=== PATIENT | female | born 1955 | race Caucasian/White ===

== ENCOUNTER 2017-02-26 08:46 | Day surgery (SDC) | payer BC ==
[~2017-02-26] VITALS: Ht 149.9 cm; Wt 70.0 kg
[2017-02-26] VITALS (18 sets, daily range): BP systolic 93–140; BP diastolic 52–81; PULSE 60–70; TEMP 36.4–37; O2SAT 92–100; Ht 149.9 cm; Wt 70.0 kg
--- NOTE | 2017-02-26 09:22 | History and Physical ---
History & Physical Date Feb 26, 2017. Chief Complaint Increasing shortness of breath with activity History of Present Illness The patient is a 61 year old female with complaints of Increasing shortness of breath with activity Past Medical/Surgical History 61-year-old female seen by Dr. Anand and Joe Murray the history of asthma and multiple exacerbations. 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 She has been noticing increasing shortness of breath with activity especially climbing stairs and other episodes of significant exertion. She quit smoking 10 years ago after 3/4 packs per day for 25 years. She has had a 5-6 pound weight loss as also noted pulse oximetry dipping down to 80 % with activity. She sees Dr. Clakr/Cardiology for paroxysmal atrial fibrillation and hypertension. She underwent myocardial perfusion scan on 02/17 with medium size/mild anterior wall a reversibility defects suggestive breast attenuation no evidence for ischemia. She also had normal left ventricular function and EKG was negative for myocardial ischemia. She did have wheezing and shortness of Breath during her exercise portion of the studies. Overnight oximetry study was essentially within normal limits with only 5.2 % of the time desaturations noted. CT scan of the chest 02/10/2017 showed Active Problems 1. Asthma 2. Bronchitis 3. Chronic obstructive pulmonary disease 4. Fibromyalgia 5. Shortness of breath Surgical History 1. History of Appendectomy 2. History of Hysterectomy Family History 1. Family history of cardiac disorder 2. Family history of Alzheimer's disease Social History Former smoker Marital History - Currently Occupation: Current Meds 1. Albuterol Sulfate (2.5 MG/3ML) 0.083% Inhalation Nebulization DOSE IN NEBULIZER EVERY 4 PRN 2. Budesonide 0.25 MG/2ML Inhalation Suspension; USE 1 UNIT DOSE VIA NEBULIZER TWO TIMES A DAY 3. Montelukast Sodium 10 MG Oral Tablet; TAKE 1 TABLET IN THE EVENING; 4. Ventolin HFA 108 (90 Base) MCG/ACT Inhalation EVERY 4 HOURS NEEDED 5. Advair Diskus 500-50 MCG/DOSE Inhalation Aerosol Powder Breath Activated; INHALE 1 PUFF TWICE DAILY 6. Spiriva HandiHaler 18 MCG Inhalation Capsule; INHALE THE CONTENTS OF 1 CAPSULE DAILY 7. Cozaar 50 MG Oral Tablet; TAKE 1 TABLET DAILY DIRECTED; 8. Metoprolol Tartrate 25 MG Oral Tablet; TAKE 1 TABLET TWICE DAILY; 9. Motrin IB 200 MG Oral Tablet; TAKE 1 TABLET EVERY 12HOURS DAILY; 10. Wellbutrin SR 150 MG Oral Tablet Extended Release 12 Hour; TAKE 1 TABLET DAILY Allergies 1. Fosamax TABS Additional History Hepatic Disease: No Endocrine Disorder: No Kidney Disease: No Hypertension: No Heart Disease: No Bleeding Tendencies: No Infectious Diseases: No Physical Examination Skin: warm/dry, no rash Eyes: normal inspection, EOMI, sclerae normal ENT: normal ENT inspection, pharynx normal Head: normocephalic, atraumatic Neck: supple, no adenopathy, trachea midline Respiratory/Chest: lungs clear, normal breath sounds, no respiratory distress Cardiovascular: regular rate, rhythm, no edema, no murmur Abdomen / GI: normal bowel sounds, non tender Back: normal inspection Extremities: normal inspection, normal range of motion Neurologic/Psych: no motor/sensory deficits, alert, normal reflexes, oriented x 3 Diagnosis Increasing shortness of breath with activity ASA Classification: ASA Class III Plan of Treatment Bronchoscopy with BAL and conscious sedation
--- NOTE | 2017-02-26 10:31 | History & Physical Bridge Note ---
H&P Re-Evaluation Bridge Note: I have examined the patient, reviewed the History & Physical and in the interval since the performance of the History & Physical I have noted the following changes of clinical significance: No changes noted
--- NOTE | 2017-02-26 10:32 | Procedure Note ---
Pre-Mod Sedation Assessment General Date of Moderate Sedation: Feb 26, 2017. Vital Signs: Vital Signs Past 12 Hours Date Time Temp Pulse Resp B/P (MAP) Pulse Ox O2 Delivery O2 Flow Rate FiO2 02/26/17 09:36 36.5 67 20 140/67 (91) 100 Room Air Review Cardiovascular: regular rate, rhythm, no edema, no gallop, no JVD, no murmur Abdomen: normal bowel sounds, non tender, soft, no organomegaly, no pulsatile mass Lungs: chest non-tender, lungs clear, normal breath sounds Airway Class: III Pre-Sedation Airway Assessment Oral Cavity: WNL Short Thick Neck: No Hx of Sleep Apnea: No Smoking Status: Former Smoker Mallampati Classification: Class III Procedure Planning Contraindications-for Mod Sed: None Yes Notes The planned sedation has been discussed with the patient and consent obtained. I have identified the patient, determined the appropriateness of sedation and have assessed the patient immediately prior to the procedure. All medicine(s) and interventions are by my order.
[2017-02-26] MEDS ORDERED: NURSING VERBAL MED ORDER ONE ×2 (10:45→12:00)
[2017-02-26] MEDS ORDERED: PRVHFAIN INH (10:47)
[2017-02-26] MEDS ORDERED: LOSA50TA6 PO (10:47)
[2017-02-26] MEDS ORDERED: BUPR-79 PO (10:47)
[2017-02-26] MEDS ORDERED: BUDE0.253 NEB (10:47)
[2017-02-26] MEDS ORDERED: IBUP-1050 PO (10:47)
[2017-02-26] MEDS ORDERED: MONT1TAB3 PO (10:47)
[2017-02-26] MEDS ORDERED: ASPI81TA28 PO (10:47)
[2017-02-26] MEDS ORDERED: ALBU2SYP9 INH (10:47)
[2017-02-26] MEDS ORDERED: METO25TA56 PO (10:47)
[2017-02-26] MEDS ORDERED: ADVIN50/60 INH (10:47)
[2017-02-26] MEDS ORDERED: PANT40TA PO (10:47)
[2017-02-26] MEDS ORDERED: SPRIN/30 INH (10:47)
[2017-02-26] MEDS ORDERED: DEXTROSE 5% 500ML 500 ML IV SCH (11:00)
--- NOTE | 2017-02-26 11:23 | Procedure Note ---
Post-Moderate Sedation Plan General Date of Moderate Sedation Feb 26, 2017. Vital Signs: Vital Signs Past 12 Hours Date Time Temp Pulse Resp B/P (MAP) Pulse Ox O2 Delivery O2 Flow Rate FiO2 02/26/17 11:10 60 16 112/69 97 Mask 4.0 02/26/17 11:05 61 16 108/62 100 Mask 4.0 02/26/17 11:00 68 20 116/78 100 Mask 4.0 02/26/17 10:55 62 20 108/73 100 Mask 4.0 02/26/17 10:50 66 20 121/73 100 Mask 8.0 02/26/17 10:47 65 20 133/81 98 Mask 8.0 02/26/17 10:43 64 20 93/69 99 Mask 8.0 02/26/17 10:34 36.5 67 20 140/67 100 Room Air 02/26/17 09:36 36.5 67 20 140/67 (91) 100 Room Air Review - Discharge Plan Post Moderate Sedation Plan: On clinical assessment, the patient appears to have tolerated the conscious sedation without complications. Patient is recovering as anticipated. Patient will continue to be monitored by nursing and may be discharged when conscious sedation discharge criteria are met.
--- NOTE | 2017-02-26 11:25 | Bronchoscopy Procedure Note ---
Bronchoscopy Procedure Note Procedure: Bronchoscopy, conscious sedation, BAL right middle lobe Consent: Obtained through the patient placed into the chart Pre-procedural diagnosis: Chronic cough with progressive dyspnea on exertion Post-procedural diagnosis: Chronic cough with progressive dyspnea on exertion and atypical right middle lobe/external compression Start time: 1100 End time: 1119 Total time: minutes Analgesia: 2% liquid lidocaine: Via nebulizer 4% gel lidocaine: Via right naris 2% liquid lidocaine: Via bronchoscopy Sedation: Versed IV: 4mg Fentanyl IV: 75 g Procedure: The [employer] [place] [employer] video bronchoscope was used for this procedure and passed down through the right naris Right naris/posterior naris/posterior oropharynx: Anatomically within normal limits Glottis: Anatomically within normal limits Vocal cords: Proper abduction and abduction, anatomically within normal limits Subglottis/trachea/Carly: Anatomically within normal limits Right bronchial tree: Right mainstem bronchus: Anatomically within normal limits Right upper lobe: Anatomically within normal limits Bronchus intermedius: Anatomically within normal limits Right middle lobe: Notably erythematous with circumferential external compression Right lower lobe: Anatomically within normal limits Findings: No significant findings noted Left bronchial tree: Left mainstem bronchus: Anatomically within normal limits Left upper lobe: Anatomically within normal limits Lingula: Anatomically within normal limits Left lower lobe: Anatomically within normal limits Findings: No significant findings noted Bronchial alveolar lavage: Right middle lobe with minimal return EBL: Complications: None Follow-up: In the [facility]
--- NOTE | 2017-02-26 11:26 | Discharge Instructions ---
Discharge Instructions Date of Service Feb 26, 2017. Admission Reason for Admission: Asthma,Copd,Sob *Dr Smith To Do* Discharge Discharge Diagnosis / Problem: progressive dyspnea on exertion, chronic cough with external compression of Discharge Goals Goal(s): Diagnostic testing Activity Recommendations Activity Limitations: resume your previous activity . Instructions / Follow-Up Instructions / Follow-Up Follow-up with Dr. Anand in the [facility]/pulmonary division Current Hospital Diet Patient's current hospital diet: Discharge Diet Recommended Diet: Regular Diet Procedures Procedures Performed: Bronchoscopy, conscious sedation, bronchial lavage of the right middle lobe Pending Studies Studies pending at discharge: no Medical Emergencies . Who to Call and When: Medical Emergencies: If at any time you feel your situation is an emergency, please call 911 immediately. . Non-Emergent Contact Non-Emergency issues call your: Vessel Slagman . . "Provider Documentation" section prepared by Demond Smith. . VTE Core Measure Inpt VTE Proph given/why not?: Treatment not indicated
[2017-02-26] MEDS ORDERED: FENTANYL CITRATE INJ 50 MCG/1 ML 2 ML VIAL IV ONE (12:00)
[2017-02-26] MEDS ORDERED: MIDAZOLAM HCL 5 MG/ML 1 ML VIAL IV ONE (12:00)
== END 2017-02-26 13:35 | disposition home or self-care (01) ==
LOC: C.ACU 08:46
PROVIDERS: ATTEND Internal Medicine Critical Care Medicine
DX: R05 Cough (principal); R06.00 Dyspnea, unspecified; J45.909 Unspecified asthma, uncomplicated; J44.9 Chronic obstructive pulmonary disease, unspecified; R06.02 Shortness of breath; Z87.891 Personal history of nicotine dependence; I48.0 Paroxysmal atrial fibrillation; I10 Essential (primary) hypertension; M79.7 Fibromyalgia; Z90.89 Acquired absence of other organs; Z90.710 Acquired absence of both cervix and uterus; Z82.49 Family history of ischemic heart disease and other diseases of the circulatory system; Z81.8 Family history of other mental and behavioral disorders

== ENCOUNTER 2017-08-25 09:09 | Inpatient (IN) | payer BC ==
[2017-07-30 10:52] VITALS: BMI 32.0
--- NOTE | 2017-07-30 11:43 | PAT Medication Instructions ---
Service Date Jul 30, 2017. Current Home Medication List Albuterol (Ventolin Hfa), 2 PUFFS INH Q4 PRN for SOB/Wheezing Albuterol Sulf (Ventolin), Unknown Dose INH QAM PRN for COPD Aspirin (Aspirin Ec), 81 MG PO QAM Budesonide (Inhalation) (Pulmicort Respules 0.25MG/2ML), Unknown Dose NEB QAM PRN for COPD Budesonide/Formoterol Fumarate (Symbicort 160/4.5 Inhaler), 1 PUFFS INH BID Bupropion (Wellbutrin Sr), 150 MG PO QAM Calcium/Vitamin D (Os-Allan 500 Plus D), 1 TAB PO QAM Ibuprofen (Advil), 600 MG PO TID PRN for Pain Losartan Potassium (Cozaar), 1 TAB PO QAM Metoprolol Tartrate (Lopressor) (Lopressor), 1 TAB PO BID Montelukast Sodium (Singulair), 1 TAB PO QAM Naproxen (Aleve), 220 MG PO UD Pantoprazole (Protonix), 40 MG PO QAM Risedronate Sod (Actonel), 35 MG PO WK Tiotropium [place] (Spiriva Handihaler), Unknown Dose INH QAM Medication Instructions For Your Scheduled Surgery -Continue as directed: Risedronate Sod (Actonel), 35 MG PO WK - Hold the following medications 7 days prior to surgery: Ibuprofen (Advil), 600 MG PO TID PRN for Pain Naproxen (Aleve), 220 MG PO UD - Hold the following medications the morning of surgery: Calcium/Vitamin D (Os-Allan 500 Plus D), 1 TAB PO QAM Losartan Potassium (Cozaar), 1 TAB PO QAM - Take the following medications the morning of surgery with a sip of water: Albuterol (Ventolin Hfa), 2 PUFFS INH Q4 PRN for SOB/Wheezing (if needed, and bring it with you ti the hospital) Albuterol Sulf (Ventolin), Unknown Dose INH QAM for COPD Aspirin (Aspirin Ec), 81 MG PO QAM Budesonide (Inhalation) (Pulmicort Respules 0.25MG/2ML), Unknown Dose NEB QAM for COPD Budesonide/Formoterol Fumarate (Symbicort 160/4.5 Inhaler), 1 PUFFS INH BID Bupropion (Wellbutrin Sr), 150 MG PO QAM Metoprolol Tartrate (Lopressor) (Lopressor), 1 TAB PO BID Montelukast Sodium (Singulair), 1 TAB PO QAM Pantoprazole (Protonix), 40 MG PO QAM Tiotropium [place] (Spiriva Handihaler), Unknown Dose INH QAM - Take the following medications as scheduled the night before surgery: Albuterol (Ventolin Hfa), 2 PUFFS INH Q4 PRN for SOB/Wheezing (if needed) Albuterol Sulf (Ventolin), Unknown Dose INH QAM PRN for COPD Budesonide (Inhalation) (Pulmicort Respules 0.25MG/2ML), Unknown Dose NEB QAM PRN for COPD Budesonide/Formoterol Fumarate (Symbicort 160/4.5 Inhaler), 1 PUFFS INH BID Metoprolol Tartrate (Lopressor) (Lopressor), 1 TAB PO BID If you have any questions please call us at [phone] or [phone] or [phone]
[2017-07-30 12:26] LABS: BASO % 0.8 %; BASO ABS # 0.07 K/uL (0-0.2); EOS % 7.4 %; EOS ABS # 0.64 K/uL (0-0.5); HEMATOCRIT 33.7 % (37-47); HEMOGLOBIN 11.2 g/dL (12.0-16.0); IG# 0.01 K/uL (0.00-0.02); LYMPH % 17.7 %; LYMPH ABS # 1.52 K/uL (1.2-3.4); MEAN CELL VOLUME 90.8 fL (80-100); MEAN CORPUSCULAR HEMOGLOBIN 30.2 pg (25-34); MEAN CORPUSCULAR HGB CONC 33.2 g/dl (32-36); MEAN PLATELET VOLUME 10.9 fL (7.4-10.4); MONO % 7.9 %; MONO ABS # 0.68 K/uL (0.11-0.59); NEUT % 66.1 %; NEUT ABS # 5.68 K/uL (1.4-6.5); PLATELET COUNT 290 K/uL (130-400); RED CELL DISTRIBUTION WIDTH CV 14.9 % (11.5-14.5)
[2017-07-30 12:36] LABS: PTT PATIENT 25.3 SECONDS (21.0-31.0)
[2017-07-30 13:26] LABS: CALCIUM 8.9 mg/dl (8.5-10.1); CREATININE 0.88 mg/dl (0.60-1.20); POTASSIUM 3.9 mmol/L (3.5-5.1)
[2017-08-25] VITALS (9 sets, daily range): BP systolic 106–159; BP diastolic 71–90; PULSE 58–96; TEMP 36.6–37; O2SAT 94–100; Ht 149.9 cm; Wt 70.0 kg
[~2017-08-25] VITALS: Ht 149.9 cm; Wt 70.0 kg
[~2017-08-25 09:09] MED LIST: ACT/35 PO; ALBU2SYP9 INH; ASPI81TA28 PO; ATROPINE SULFATE 0.1 MG/ML 5ML SYR IV PRN; BUDE0.253 NEB; BUPR-79 PO; CALC500C70 PO; CEFAZOLIN 1000MG IV PUSH 7.5 ML IV SCH; EpHEDrine SULFATE INJ 50 MG/ML AMP IV PRN; FENTANYL CITRATE INJ 50 MCG/1 ML 2 ML VIAL IV PRN; HYDROmorphone INJ 1 MG/ML SYR IV PRN; IBUP-1050 PO; LABETALOL HCL IV 5 MG/ML 20ML IV PRN; LACTATED RINGER'S 1000ML 1,000 ML IV SCH; LOSA50TA6 PO; METO25TA56 PO; MONT1TAB3 PO; NAPR1TAB9 PO; ONDANSETRON INJ 2 MG/ML 2 ML VIAL IV PRN; PANT40TA PO; PHENYLEPHRINE 100MCG/ML 5ML SYR IV PRN; PROMETHAZINE HCL INJ 12.5 MG in SODIUM CHLORIDE 0.9% 50ML 50 ML IV PRN; PRVHFAIN INH; SPRIN/30 INH; SYMIN160 INH
[2017-08-25] MEDS ORDERED: MIDAZOLAM HCL 1 MG/ML 2ML VIAL ONE (11:22)
[2017-08-25] MEDS ORDERED: FENTANYL CITRATE INJ 50 MCG/1 ML 2 ML VIAL ONE ×3 (11:23→14:14)
--- NOTE | 2017-08-25 11:30 | History and Physical ---
History & Physical Date Aug 25, 2017. Chief Complaint Back and leg pain History of Present Illness The patient is a 61 year old female with complaints of back and leg pain Additional History Hepatic Disease: No Endocrine Disorder: No Kidney Disease: No Hypertension: Yes Heart Disease: No Bleeding Tendencies: No Infectious Diseases: No Allergies Coded Allergies: Alendronate (Verified Allergy, Severe, "SEVERE BONE PAIN", 07/30/17) Home Medications Scheduled Aspirin (Aspirin Ec), 81 MG PO QAM Budesonide/Formoterol Fumarate (Symbicort 160/4.5 Inhaler), 1 PUFFS INH BID Bupropion (Wellbutrin Sr), 150 MG PO QAM Calcium/Vitamin D (Os-Allan 500 Plus D), 1 TAB PO QAM Losartan Potassium (Cozaar), 1 TAB PO QAM Metoprolol Tartrate (Lopressor) (Lopressor), 1 TAB PO BID Montelukast Sodium (Singulair), 1 TAB PO QAM Naproxen (Aleve), 220 MG PO UD Pantoprazole (Protonix), 40 MG PO QAM Risedronate Sod (Actonel), 35 MG PO WK Tiotropium [place] (Spiriva Handihaler), Unknown Dose INH QAM Scheduled PRN Albuterol (Ventolin Hfa), 2 PUFFS INH Q4 PRN for SOB/Wheezing Albuterol Sulf (Ventolin), Unknown Dose INH QAM PRN for COPD Budesonide (Inhalation) (Pulmicort Respules 0.25MG/2ML), Unknown Dose NEB QAM PRN for COPD Ibuprofen (Advil), 600 MG PO TID PRN for Pain Physical Examination Skin: warm/dry, no rash Eyes: normal inspection, EOMI, sclerae normal ENT: normal ENT inspection, pharynx normal Head: normocephalic, atraumatic Neck: supple, no adenopathy, trachea midline Respiratory/Chest: lungs clear, normal breath sounds, no respiratory distress Cardiovascular: regular rate, rhythm, no edema, no murmur Abdomen / GI: normal bowel sounds, non tender Back: normal inspection Extremities: normal inspection, normal range of motion Neurologic/Psych: no motor/sensory deficits, alert, normal reflexes, oriented x 3 Diagnosis Lumbar spinal stenosis with spondylolisthesis Plan of Treatment L3-S1 decompression and fusion
[2017-08-25] MEDS ORDERED: BACITRACIN 50000 UNIT VIAL ONE (11:56)
[2017-08-25] MEDS ORDERED: BUPIVACAINE/EPINEPHRINE 0.5% MPF 1:200,000 30 ML VIAL ONE (11:56)
[2017-08-25] MEDS ORDERED: HYDROmorphone INJ 2 MG/ML SYR/VIAL ONE ×2 (12:28→13:41)
[2017-08-25] MEDS ORDERED: ONDANSETRON INJ 2 MG/ML 2 ML VIAL ONE ×2 (13:42→14:08)
[2017-08-25] MEDS ORDERED: ROCURONIUM BROMIDE 10 MG/ML 5 ML VIAL IV ONE (13:42)
[2017-08-25] MEDS ORDERED: DEXAMETHASONE SOD INJ 4 MG/ML VIAL ONE (13:42)
[2017-08-25] MEDS ORDERED: PROPOFOL IV EMULSION 10 MG/ML 20 ML VIAL IV ONE (13:42)
[2017-08-25] MEDS ORDERED: EpHEDrine SULFATE 50MG/5ML SYR ONE ×2 (13:42→14:07)
[2017-08-25] MEDS ORDERED: LIDOCAINE HCL 2% 2 ML VIAL (20MG/ML) ONE (13:42)
[2017-08-25] MEDS ORDERED: KETOROLAC TROMETHAMINE 30 MG/ML VIAL ONE (13:43)
[2017-08-25] MEDS ORDERED: NEOSTIGMINE METHYLSULFATE 1 MG/ML 10ML VIAL ONE (14:07)
[2017-08-25] MEDS ORDERED: GLYCOPYRROLATE INJ 0.2 MG/ML VIAL ONE (14:07)
[2017-08-25] MEDS ORDERED: FLOSEAL HEMOSTATIC MATRIX 10ML TOP ONE (14:08)
[2017-08-25] MEDS ORDERED: hydrOXYzine HCL 25 MG TAB PO PRN (14:15)
[2017-08-25] MEDS ORDERED: LORAZEPAM INJ 0.5 MG in SYRINGE 0 ML IV PRN (14:15)
[2017-08-25] MEDS ORDERED: MAGNESIUM HYDROXIDE SUSP 30 ML UDC PO PRN (14:15)
[2017-08-25] MEDS ORDERED: ACETAMINOPHEN 500 MG TAB PO PRN (14:15)
[2017-08-25] MEDS ORDERED: BISACODYL 10 MG SUPP PR PRN (14:15)
[2017-08-25] MEDS ORDERED: ALUMINUM/MAGNESIUM SUSP 30 ML UDC PO PRN (14:15)
[2017-08-25] MEDS ORDERED: DO NOT ADMINISTER FLU VACCINE PRN (14:15)
[2017-08-25] MEDS ORDERED: ALBUTEROL HFA 8 GM INHALER INH PRN (14:15)
[2017-08-25] MEDS ORDERED: SOD PHOSPHATE/SOD BIPHOSPHATE ENEMA 132 ML BTL PR PRN (14:15)
[2017-08-25] MEDS ORDERED: CEFAZOLIN IV 1,000 MG in DEXTROSE 5% 50ML 50 ML IV SCH (14:15)
[2017-08-25] MEDS ORDERED: LORAZEPAM 0.5 MG TAB PO PRN (14:15)
[2017-08-25] MEDS ORDERED: METOCLOPRAMIDE HCL INJ 5 MG/ML 2 ML VIAL IV PRN (14:15)
[2017-08-25] MEDS ORDERED: PROMETHAZINE HCL INJ 12.5 MG in SODIUM CHLORIDE 0.9% 50ML 50 ML IV PRN (14:15)
[2017-08-25] MEDS ORDERED: NALOXONE HCL 0.4 MG/1 ML VIAL/CARP IV PRN ×2 (14:15)
[2017-08-25] MEDS ORDERED: FAMOTIDINE 20 MG TAB PO PRN (14:15)
[2017-08-25] MEDS ORDERED: DO NOT ADMINISTER PNEUMOCOCCAL VACCINE PRN (14:15)
[2017-08-25] MEDS ORDERED: HYDROmorphone HCL 0.5MG/ML 50 ML CASSETTE IV PRN (14:15)
[2017-08-25] MEDS ORDERED: SODIUM CHLORIDE 0.9% 1000ML 1,000 ML IV SCH (14:15)
[2017-08-25] MEDS ORDERED: ACETAMINOPHEN IV 100 ML IV PRN (14:15)
--- NOTE | 2017-08-25 14:15 | [facility] Operative Report ---
Operative Report Operative Date Aug 25, 2017. Pre-Operative Diagnosis Lumbar Spinal Stenosis and Spondylolisthesis Post-Operative Diagnosis Same Procedure(s) Performed 1. Lumbar decompression medial facetectomy foraminotomy L3-4 L4-5 L5-S1. #2 posterior spinal fusion L3-4 L4-5 L5-S1. #3 placement posterior segmental instrumentation L3-S1. #4 placement of locally harvested Fernandez's allograft in the posterior lateral gutters. #5 placement InFUSE collagen sponge, with master graft in the posterior lateral gutters. Surgeon Dr. Galen Luo Grill Prep Cook Surgeon(s) Maria Teresa Cardenas PA-C Estimated Blood Loss 275mL Findings Severe spinal stenosis Specimens None, Per Surgeon Anesthesia Type General Description of Procedure Patient was met with preoperatively case discussed all questions addressed. After informed consent obtained patient was taken to the operative suite underwent intubation and placed in the prone position on the Aiden table on top of the Padilla frame. All bony prominences were well-padded eyes inspected to ensure no external pressure placed upon them. This point the lumbar spine was prepped and draped in the normal sterile fashion. Sharp dissection with the assistance of Bovie cautery was performed down to and exposing the lamina and transverse processes of L3-L4-L5 and the sacral ala bilaterally. From a caudocephalad fashion complete laminectomy of L5 L4 and L3 is performed addressing severe lateral recess and foraminal stenosis. Pedicle screws were then placed in L3-L4-L5 S1 levels bilaterally with the assistance of fluoroscopy and the appropriate size de placed. Transverse processes of L3-L4- L5 and the sacral sacral ala were then burred to subcortical bleeding bone. Infuse collagen sponge master graft and locally harvested morselized autograft were placed in the posterior gutters. A 15 round ALTON drains was inserted in the incision was closed with 1 Vicryl fascia 2-0 Vicryl subcutaneously and 4-0 Monocryl for fashion closure Steri-Strips sterile dressings placed. Patient weakened taken PACU stable condition. Please note Maria Teresa Redd was present throughout the entire procedure involved in patient positioning complex portions of the surgery and final skin closure. I attest to the content of the Intraoperative Record and any orders documented therein. Any exceptions are noted below.
--- NOTE | 2017-08-25 14:21 | DIAGNOSTIC IMAGING REPORT ---
LUMBAR SPINE 2 OR 3 VIEW CLINICAL HISTORY: 61 years-old Female presenting with L3-S1 DECOMPRESSION AND FUSION. TECHNIQUE: 2 fluoroscopic spot image(s) obtained as part of an intraoperative procedure. COMPARISON: None. FINDINGS/IMPRESSION: Bilateral transpedicular screw not fixation of L3-S1. Laminectomy defects also noted. Grossly normal anatomic alignment. Please see surgical report for further details. Fluoroscopy dosage (mGy): 19.24. Fluoroscopy time: 22.9 seconds. Number of fluoroscopic spot images: 2. Electronically signed by: Pravin Adams M.D. 08/25/2017 2:19 PM Dictated Date/Time: 08/25/2017 2:19 PM
[2017-08-25] MEDS ORDERED: HYDROmorphone HCL 0.5MG/ML 50 ML CASSETTE ONE (14:34)
--- NOTE | 2017-08-25 15:22 | Anesthesiology Progress Note ---
Anesthesia Post Op Note Date & Time Aug 25, 2017 at 15:22 Vital Signs Pain Intensity: 0 Vital Signs Past 12 Hours Date Time Temp Pulse Resp B/P (MAP) Pulse Ox O2 Delivery O2 Flow Rate FiO2 08/25/17 15:05 87 14 121/70 100 Nasal Cannula 3 08/25/17 14:55 91 14 131/66 100 Nasal Cannula 3 08/25/17 14:45 99 16 132/71 100 Oxymask 3 08/25/17 14:35 104 16 136/75 100 Oxymask 5 08/25/17 14:29 36.1 107 16 111/66 100 Oxymask 5 08/25/17 09:41 100 Room Air 08/25/17 09:38 36.8 58 18 159/90 Notes Mental Status: alert / awake / arousable, participated in evaluation Pt Amnestic to Procedure: Yes Nausea / Vomiting: adequately controlled Pain: adequately controlled Airway Patency, RR, SpO2: stable & adequate BP & HR: stable & adequate Hydration State: stable & adequate Anesthetic Complications: no major complications apparent
[2017-08-25] MEDS: SODIUM CHLORIDE 0.9% 1000ML 1,000 ML IV SCH ×2 (17:32→23:20)
[2017-08-25] MEDS: CEFAZOLIN IV 1,000 MG in SYRINGE 0 ML IV SCH (17:33)
[2017-08-25] MEDS ORDERED: CALC-342 PO (18:40)
[2017-08-25] MEDS ORDERED: SPRIN/30 INH (18:40)
[2017-08-25] MEDS ORDERED: BUDE0.253 NEB (18:45)
[2017-08-25] MEDS ORDERED: ALBINS/ INH (18:45)
--- NOTE | 2017-08-25 19:43 | Medical Consult ---
Consultation Date of Consultation: Aug 25, 2017. Attending Physician: Galen Luo D.O. Reason for Consultation: Postop medical management History of Present Illness 61-year-old female who is a/P L3-S1 decompression and fusion today by Dr. Luo. Patient reports increasing back pain with radiation into the right hip and left leg for the past several years. Patient failed outpatient conservative measures and therefore presented for the planned procedure today. Postoperatively patient is doing well. She reports her pain is well controlled. She denies any weakness, numbness, or tingling to the bilateral lower extremities. She had some mild nausea that has since resolved. She denies abdominal pain or vomiting. No chest pain, shortness of breath, or palpitations. She denies lightheadedness, dizziness, or syncopal events. She has a catheter in place that is draining clear yellow urine Past Medical/Surgical History Medical Problems: (1) COPD (chronic obstructive pulmonary disease) Status: Chronic (2) Depression with anxiety Status: Chronic (3) Dyslipidemia Status: Chronic (4) Fibromyalgia Status: Chronic (5) GERD (gastroesophageal reflux disease) Status: Chronic (6) Hypertension Status: Chronic Surgical Problems: (1) History of appendectomy Status: Chronic (2) History of hysterectomy Status: Chronic Family History FH: arthritis FATHER Social History Smoking Status: Former Smoker Alcohol Use: none Allergies Coded Allergies: Alendronate (Verified Allergy, Severe, "SEVERE BONE PAIN", 07/30/17) Home Medications Pulmicort Respules 0.25MG/2ML (Budesonide (Inhalation)) 0.25 Mg/2 Ml Radha 1 Vial NEB DAILY 15 Days and TID PRN Proventil 0.083% 2.5MG/3ML (Albuterol Sulf) 2.5 Mg/3 Ml Nebu 2.5 Mg INH DAILY and TID PRN Spiriva Handihaler (Tiotropium Russell) 30 Puff/540 Mcg Aerp 1 Cap INH DAILY 30 Days Calcium 600+D (Calcium Carbonate-Vitamin D) 1 Tab Tab 1 Tab PO BID Symbicort 160/4.5 Inhaler (Budesonide/Formoterol Fumarate) 120 Puffs/ Aero 1 Puffs INH BID Actonel (Risedronate Sod) 35 Mg Tab 35 Mg PO WK TAKES ON SUNDAYS IN AM Aleve (Naproxen) 220 Mg Tab 220 Mg PO UD USES IBUPROFEN OR ALEVE PRN Aspirin Ec (Aspirin) 81 Mg Tab 81 Mg PO QAM Protonix (Pantoprazole Sodium) 40 Mg Tab 40 Mg PO QAM Wellbutrin Sr (Bupropion HCl) 150 Mg Ertab 150 Mg PO QAM Advil (Ibuprofen) 200 Mg Tab 600 Mg PO TID PRN Lopressor (Metoprolol Tartrate) 25 Mg Tab 1 Tab PO BID 90 Days Cozaar (Losartan Potassium) 50 Mg Tab 1 Tab PO QAM 30 Days Ventolin Hfa (Albuterol) 60 Puffs/5400 Mcg Aers 2 Puffs INH Q4 PRN Singulair (Montelukast Sodium) 10 Mg Tab 1 Tab PO QAM 90 Days Current Inpatient Medications Current Inpatient Medications Medications (Trade) Dose Ordered Sig/Richard Route Start Time Stop Time Status Last Admin Dose Admin Cefazolin Sodium 7.5 ml @ 2.5 mls/min PREOP IV 08/25/17 06:00 08/26/17 05:59 Lactated Ringer's 1,000 ml @ 15 mls/hr Q24H IV 08/25/17 06:00 08/26/17 05:59 08/25/17 11:42 15 MLS/HR Promethazine HCl 12.5 mg/Sodium Chloride 50.5 ml @ 202 mls/hr Q6H PRN IV 08/25/17 14:15 09/24/17 14:14 Ondansetron HCl (Zofran Inj) 4 mg Q6H PRN IV 08/25/17 14:15 09/24/17 14:14 Metoclopramide HCl (Reglan Inj) 10 mg Q6H PRN IV 08/25/17 14:15 09/24/17 14:14 Lorazepam (Ativan Tab) 0.5 mg Q8H PRN PO 08/25/17 14:15 09/24/17 14:14 Lorazepam 0.5 mg/ Syringe 0.25 ml @ 1 mls/min Q8H PRN IV 08/25/17 14:15 09/24/17 14:14 Pneumococcal Polysaccharide Vaccine 1 ea PRN PRN N/A 08/25/17 14:15 09/24/17 14:14 Influenza Virus Vacc Triv Types A&B 1 ea PRN PRN N/A 08/25/17 14:15 09/24/17 14:14 Polyethylene (Miralax Powder Packet) 17 gm Q6 PO 08/27/17 06:00 09/26/17 05:59 Bisacodyl (Dulcolax Supp) 10 mg DAILY PRN AL 08/25/17 14:15 09/24/17 14:14 Magnesium Hydroxide (Milk Of Magnesia Susp) 30 ml DAILY PRN PO 08/25/17 14:15 09/24/17 14:14 Hydromorphone HCl (Dilaudid Inj) 0.5-1mg prn moder... Q3H PRN IV 08/26/17 06:00 09/09/17 05:59 Oxycodone HCl (Roxicodone Immediate Rel Tab) 5-10mg prn moderate to sev... Q4H PRN PO 08/26/17 06:00 09/09/17 05:59 Sodium Chloride 1,000 ml @ 150 mls/hr Q6H40M IV 08/25/17 17:00 09/24/17 16:59 08/25/17 17:32 150 MLS/HR Acetaminophen (Tylenol Tab) 1,000 mg Q8H PRN PO 08/25/17 14:15 09/24/17 14:14 Acetaminophen 100 ml @ 400 mls/hr Q8H PRN IV 08/25/17 14:15 09/24/17 14:14 Naloxone HCl (Narcan Inj) 0.1 mg Q5M PRN IV 08/25/17 14:15 09/24/17 14:14 Senna/Docusate Sodium (Senokot S Tab) 2 tab HS PO 08/25/17 21:00 09/24/17 20:59 Sodium Biphosphate/ Sodium Phosphate (Fleet Enema) 132 ml ONE PRN AL 08/25/17 14:15 09/24/17 14:14 Hydroxyzine HCl (Vistaril Tab) 25 mg Q8H PRN PO 08/25/17 14:15 09/24/17 14:14 Al Hydroxide/Mg Hydroxide (Maalox Susp) 30 ml Q6H PRN PO 08/25/17 14:15 09/24/17 14:14 Famotidine (Pepcid Tab) 20 mg Q12 PRN PO 08/25/17 14:15 09/24/17 14:14 Diphenhydramine HCl (Benadryl Cap) 25 mg Q6H PRN PO 08/25/17 14:15 09/24/17 14:14 Miscellaneous Information (Discontinue POPCORN VENDOR) 1 ea ONE ONCE N/A 08/26/17 06:00 08/26/17 06:01 Naloxone HCl (Narcan Inj) 0.1 mg Q5M PRN IV 08/25/17 14:15 08/26/17 06:00 Hydromorphone HCl (Dilaudid Bark Tanner) 25 mg PRN PRN IV 08/25/17 14:15 08/26/17 06:00 Sodium Chloride 1,000 ml @ 15 mls/hr Q24H IV 08/25/17 14:15 08/26/17 06:00 Albuterol (Ventolin Hfa Inhaler) 2 puffs Q4 PRN INH 08/25/17 14:15 09/24/17 14:14 Aspirin (Ecotrin Tab) 81 mg QAM PO 08/26/17 09:00 09/25/17 08:59 Budesonide/ Formoterol Fumarate (Symbicort 160/ 4.5 Inh) 1 puffs BID INH 08/25/17 21:00 09/24/17 20:59 Bupropion HCl (Wellbutrin-Sr Tab) 150 mg QAM PO 08/26/17 09:00 09/25/17 08:59 Losartan Potassium (coZAAR TAB) 50 mg QAM PO 08/26/17 09:00 09/25/17 08:59 Metoprolol Tartrate (Lopressor Tab) 25 mg BID PO 08/25/17 21:00 09/24/17 20:59 Montelukast Sodium (Singulair Tab) 10 mg QAM PO 08/26/17 09:00 09/25/17 08:59 Pantoprazole Sodium (Protonix Tab) 40 mg QAM PO 08/26/17 09:00 09/25/17 08:59 Cefazolin Sodium 1000 mg/Syringe 7.5 ml @ 2.5 mls/min Q8H IV 08/25/17 18:00 08/26/17 02:02 08/25/17 17:33 2.5 MLS/MIN Tiotropium Russell (Spiriva Handihaler Inhaler) 1 puff DAILY INH 08/26/17 09:00 09/25/17 08:59 Albuterol Sulfate (Ventolin 0.083% 2.5MG/3ML Neb) 2.5 mg DAILY INH 08/26/17 09:00 09/25/17 08:59 Budesonide (Pulmicort Respules 0.25MG/ 2ML Neb Soln) 0.25 mg DAILY INH 08/26/17 09:00 09/25/17 08:59 Review of Systems ROS per HPI, all other systems reviewed and negative Physical Exam Date Time Temp Pulse Resp B/P (MAP) Pulse Ox O2 Delivery O2 Flow Rate FiO2 08/25/17 18:47 36.7 86 17 106/72 (83) 96 Room Air 08/25/17 17:40 36.6 84 18 109/72 (84) 94 Room Air 08/25/17 16:40 36.7 96 18 118/77 (91) 97 Room Air 08/25/17 16:10 36.7 91 15 129/75 (93) 96 Room Air 08/25/17 15:40 36.6 86 16 134/77 (96) 96 Room Air 87 08/25/17 15:40 Room Air 08/25/17 15:40 100 Room Air 08/25/17 15:25 36.4 86 14 129/73 100 Nasal Cannula 3 08/25/17 15:15 85 14 130/71 100 Nasal Cannula 3 08/25/17 15:05 87 14 121/70 100 Nasal Cannula 3 08/25/17 14:55 91 14 131/66 100 Nasal Cannula 3 08/25/17 14:45 99 16 132/71 100 Oxymask 3 08/25/17 14:35 104 16 136/75 100 Oxymask 5 08/25/17 14:29 36.1 107 16 111/66 100 Oxymask 5 08/25/17 09:41 100 Room Air 08/25/17 09:38 36.8 58 18 159/90 General Appearance: WD/WN, no apparent distress Head: normocephalic, atraumatic Eyes: normal inspection, EOMI, sclerae normal ENT: hearing grossly normal, + pertinent finding (Mucous membranes moist) Neck: supple, no JVD, no carotid bruits Respiratory/Chest: lungs clear, normal breath sounds, no respiratory distress Cardiovascular: regular rate, rhythm, no edema, normal peripheral pulses Abdomen/GI: normal bowel sounds, non tender, soft, no organomegaly Genitourinary - Female: + pertinent finding (Ferrera in place draining clear yellow urine) Back: + pertinent finding (S/P back surgery, surgical dressing dry and intact, drain in place draining bloody drainage, pedal pushes and pulls strong bilaterally) Extremities/Musculoskelatal: normal inspection, no calf tenderness, normal capillary refill Neurologic/Psych: no motor/sensory deficits, alert, normal mood/affect, oriented x 3 Skin: normal color, warm/dry Assessment & Plan S/P L3-S1 decompression fusion - POD#0 - activity and wound care orders as per ortho - pain control with bowel regimen - PT/OT - monitor H/H for acute blood loss anemia and transfuse blood products PRN Hypertension -BP controlled, continue losartan and metoprolol COPD -No signs of acute exacerbation -Continue home inhalers GERD -Continue PPI Anxiety and depression -Continue bupropion DVT prophylaxis -SCDs as per ortho Thank you for this consultation. We will follow the patient with you during their hospital stay. You can reach a member of the [facility] 16/12 via pager @ [phone]. Attending Note: Patient is a 61 yr female who underwent Lumbosacral decompression and fusion was seen and examined post OP. Doing well post op, denies chest pain, SOB, dizziness. Back pain is well controlled. Physical Exam: Vitals signs as noted above General Appearance:Moderately built and nourished, no apparent distress Head: normocephalic, Atraumatic Eyes: normal inspection, EOMI, PERRL Neck: supple, Trachea midline Respiratory/Chest: Normal breath sounds, CTA Cardiovascular: S1, S2, No murmur Abdomen/GI:Soft, Non tender, Bowel sounds present Back: Surgical Site in bandage Extremities/Musculoskelatal:normal inspection, no edema Neurologic/Psych:AAOX3, grossly no focal neurological deficits Skin:normal color,warm Assessment and Plan: S/P Lumbosacral decompression and Fusion by POD #0 Pain control Monitor for post op anemia Bowel regimen to prevent constipation DVT Px per primary team PT/OT I personally reviewed the record. Patient is interviewed and examined at bedside. Patient's care is coordinated with Erin Love [employer]. Please refer to the documentation above for details of patient's presentation and for discussion of other issues.
[2017-08-25] MEDS: BUDESONIDE/FORMOTEROL FUMARATE 160/4.5 60 PUFFS/INHALER INH SCH (20:57)
[2017-08-25] MEDS: METOPROLOL TARTRATE 25 MG TAB PO SCH (21:00)
[2017-08-25] MEDS: DOCUSATE SODIUM/SENNA 50/8.6MG TAB PO SCH (21:00)
[2017-08-25] MEDS: ONDANSETRON INJ 2 MG/ML 2 ML VIAL IV PRN (21:13)
[2017-08-26] VITALS (8 sets, daily range): BP systolic 91–114; BP diastolic 55–76; PULSE 66–90; TEMP 36.7–37.7; O2SAT 94–100
[2017-08-26] MEDS: CEFAZOLIN IV 1,000 MG in SYRINGE 0 ML IV SCH (02:03)
[2017-08-26 05:55] LABS: BASO % 0.1 %; BASO ABS # 0.01 K/uL (0-0.2); EOS % 0.4 %; EOS ABS # 0.04 K/uL (0-0.5); HEMATOCRIT 23.9 % (37-47); HEMOGLOBIN 8.5 g/dL (12.0-16.0); IG# 0.03 K/uL (0.00-0.02); LYMPH % 9.5 %; LYMPH ABS # 1.06 K/uL (1.2-3.4); MEAN CELL VOLUME 91.2 fL (80-100); MEAN CORPUSCULAR HEMOGLOBIN 32.4 pg (25-34); MEAN CORPUSCULAR HGB CONC 35.6 g/dl (32-36); MEAN PLATELET VOLUME 10.3 fL (7.4-10.4); MONO % 9.7 %; MONO ABS # 1.08 K/uL (0.11-0.59); NEUT ABS # 8.95 K/uL (1.4-6.5); PLATELET COUNT 208 K/uL (130-400); RED CELL DISTRIBUTION WIDTH CV 14.8 % (11.5-14.5); RED CELL DISTRIBUTION WIDTH SD 49.4 fL (36.4-46.3); WHITE BLOOD COUNT 11.17 K/uL (4.8-10.8)
[2017-08-26] MEDS ORDERED: DC PCA ONE (06:00)
[2017-08-26] MEDS: SODIUM CHLORIDE 0.9% 1000ML 1,000 ML IV SCH (06:08)
[2017-08-26] MEDS ORDERED: NURSING VERBAL MED ORDER ONE (06:15)
[2017-08-26 06:36] LABS: CALCIUM 7.4 mg/dl (8.5-10.1); CREATININE 0.74 mg/dl (0.60-1.20); POTASSIUM 3.5 mmol/L (3.5-5.1)
[2017-08-26] MEDS: BUDESONIDE 0.25 MG/2 ML VIAL (PULMICORT) INH SCH (07:11)
[2017-08-26] MEDS: ALBUTEROL 0.083% NEBU SOLN 3 ML VIAL INH SCH (07:12)
[2017-08-26] MEDS: OXYCODONE HCL IR 5 MG TAB (IMMEDIATE RELEASE) PO PRN ×4 (07:28→21:45)
[2017-08-26] MEDS: TIOTROPIUM BROMIDE 5 PUFF/90 MCG INH INH SCH (08:59)
[2017-08-26] MEDS: BUDESONIDE/FORMOTEROL FUMARATE 160/4.5 60 PUFFS/INHALER INH SCH ×2 (09:00→20:28)
[2017-08-26] MEDS ORDERED: LOSARTAN POTASSIUM 50 MG TAB PO SCH (09:00)
[2017-08-26] MEDS: PANTOprazole SOD 40 MG TAB PO SCH (09:02)
[2017-08-26] MEDS: METOPROLOL TARTRATE 25 MG TAB PO SCH ×2 (09:02→20:27)
[2017-08-26] MEDS: ASPIRIN 81 MG ECTAB PO SCH (09:02)
[2017-08-26] MEDS: BuPROPion SR 150 MG TABCR PO SCH (09:03)
[2017-08-26] MEDS: MONTELUKAST SOD 10 MG TAB PO SCH (09:03)
--- NOTE | 2017-08-26 10:51 | Consultant Recommendations ---
Advertising Inserter Recommendations Date of Service Aug 26, 2017. Advertising Inserter Recommendations Hospitalist consultation follow up Subjective This is a 61 year old F patient of orthopedic service who is post op back surgery on 08/25/17. Patient reports she has been working well with physical therapy yesterday. Denies shortness of breath or chest pain. Back pain is controlled. Physical Exam General Appearance: no apparent distress, sitting in chair Head: normocephalic, atraumatic Eyes: normal inspection, EOMI, sclerae normal ENT: hearing grossly normal Neck: supple, no JVD Respiratory/Chest: lungs clear, normal breath sounds, no respiratory distress Cardiovascular: regular rate, rhythm, no edema Abdomen/GI: normal bowel sounds, non tender, soft, no organomegaly Genitourinary: Ferrera Back: surgical dressing dry and intact, drain in place draining bloody drainage Extremities/Musculoskelatal: normal inspection, no calf tenderness, normal capillary refill Neurologic/Psych: no motor/sensory deficits, alert, normal mood/affect, oriented x 3 Skin: normal color, warm/dry Consultation recommendations / assessment This is a 61 year old F patient of orthopedic service who is post op Lumbar decompression medial facetectomy foraminotomy L3-4 L4-5 L5-S1; posterior spinal fusion L3-4 L4-5 L5-S1; placement posterior segmental instrumentation L3-S1 decompression fusion on 08/25/17 for history of Lumbar Spinal Stenosis and Spondylolisthesis Post-Operative Diagnosis Same Procedure(s) Performed 1. . #4 placement of locally harvested Fernandez's allograft in the posterior lateral gutters. #5 placement InFUSE collagen sponge, with master graft in the posterior lateral gutters. On labs, patient has anemia. Pre-op hgb 11.2 and post op Hgb 8.5. Differences in Hgb may be due to post-op blood loss during surgical procedure and from ALTON drain. Patient denies history of blood transfusions. Denies seeing blood in urine or in stools. Patient denies GI bleed history or use of blood thinners at home. Patient denies cardiac history of ischemic heart disease besides frequent PVCs. At this point, would advise trending the CBC daily and to transfuse blood product is Hgb less than 7 or if having symptomatic anemia Given post op blood loss, review of blood pressure today also low normotensive ranges. Losartan already given. Would hold off further Losartan for now for home treatment of hypertension as patient is not hypertensive. Restart when systolic blood pressure consistently above systolic of 120 Continue metoprolol for heart rate control Ferrera management as per orthopedics Continue bowel regimen to prevent narcotic induced ileus COPD history, breathing on room air, no signs of acute exacerbation GERD history, continue PPI Anxiety and depression history, continue bupropion DVT prophylaxis, SCDs as per ortho, Continue physical therapy sessions as tolerated
--- NOTE | 2017-08-26 12:36 | Progress Note ---
Progress Note Date of Service Aug 26, 2017. Progress Note Patient's back pain is controlled. Her leg symptoms are markedly improved. Her vital signs are stable. On exam she is sitting in a chair is good strength testing is comfortable. Assessment status post lumbar decompression fusion per plan at this time will continue physical therapy advance her bowel regiment anticipate home latter half of this week.
[2017-08-26] MEDS ORDERED: RXC5 PO (12:39)
--- NOTE | 2017-08-26 12:39 | Discharge Instructions ---
Discharge Instructions Date of Service Aug 26, 2017. Admission Reason for Admission: Spinal Stenosis Discharge Discharge Diagnosis / Problem: lumbar stenosis Discharge Goals Goal(s): Improve function Activity Recommendations Activity Limitations: per Instructions/Follow-up section . Instructions / Follow-Up Instructions / Follow-Up ACTIVITY RECOMMENDATIONS: SELF CARE INSTRUCTIONS AFTER THORACIC/LUMBAR FUSIONS 1. You may walk to your tolerance. It is good exercise for your legs and back. Expect some back and intermittent leg aches and pains. 2. You may perform "counter-top" level activities (make a sandwich, renetta with a project, etc.). 3. No bending or lifting of more than 10 pounds or back twisting of any nature (roll like a log when turning in bed). 4. You may ride in a car for 20-30 minutes at a time. No driving until after your first visit with your doctor. 5. Frequent changes of position and restricting sitting to 30 minutes at a time will help limit the amount of back spasms and stiffness you may experience. 6. You may discontinue the use of ambulatory aids (cane, crutches, etc.) once your strength and confidence allow. 7. You may machine edge bander the shower and let water strike your incision when you arrive home at least once daily. Do not take a tub bath, sit in a hot tub or go into a swimming pool until after your first recheck in the office. SPECIAL CARE INSTRUCTIONS: VERY IMPORTANT TO READ AND REVIEW A. Your surgical incision has been closed with a cosmetic suture under the skin that will dissolve in about 6 weeks. In 14 days, you can use a pair of clean scissors and cut the suture that is left outside of the skin at the ends of your incision. 1. The small skin tapes can be removed 7 days after surgery if they have not fallen off by that point. 2. You may keep the wound open to air as much as possible to promote healing after post-op day number 5 unless told otherwise by your doctor. 3. If you think the wound looks like it is becoming infected (redness or worsening drainage) and/or you are experiencing fever, chill or worsening back pain and muscle spasms, contact the office so that we may evaluate you as soon as possible. B. Complications are uncommon, but please contact us if you have any signs or symptoms of: 1. wound infection (fever higher than 102.5 degrees F, redness, separation of wound, drainage, or increasing pain from the incision) 2. blood clots in legs (pain, swelling, redness and warmth in legs) 3. urinary tract infection (fever higher than 102.5 degrees F, burning upon urination or increased frequency of urination) 4. nerve problems (inability to walk on your toes or heels, numbness, loss of bowel or bladder control) 5. any other symptoms that concern you C. Please call the office at if you have any concerns or questions about your operation or recovery. D. No smoking! Smoking drastically decreases the chance of a solid fusion. E. Do not take any anti-inflammatory medications (Indocin, Advil, Motrin, Aspirin, Naprosyn, etc.) as these may inhibit the chance of a solid fusion. Tylenol is okay to take for pain. MANAGING PAIN AFTER SPINAL SURGERY 1. Narcotic medication is intended for short-term use and will be provided for surgical pain. Surgical pain usually lasts for a period of 4-6 weeks. Narcotic medication includes Percocet, Vicodin, Darvocet, Tylenol #3 or Lortab. 2. Longer-term pain is more appropriately treated with non-narcotic medication such as Tylenol ES. 3. Muscle spasm is not appropriately treated with narcotics. Muscle relaxers such as Soma, Flexeril or Skelaxin can be used along with Tylenol ES. 4. Remember that we all live with some "aches and pains". This is not unusual or uncommon after an injury or as we get older. a. Back pain is expected and may include muscle spasms for 4 to 6 weeks after surgery. The pain should gradually improve. If the pain worsens for no apparent reason, please contact the office. b. Intermittent leg pain may also be experienced and should not be concerned about unless it worsens for no apparent reason. If so, please contact the office. 5. We will provide appropriate medication within the normal guidelines of their prescribed use. We will also be very cautious and aware of potential abuse and extended duration of patients' medication needs. a. Pain medications are for your comfort and to assist with sleep and rest so that the tissue can heal. They are not provided in order to return to normal activity and should not be used through the day. To do so or worsening pain at night can result from ongoing tissue damage and development of tolerance to the prescribed medicine. 6. Please allow 2-3 days to process refills. Prescriptions will not be mailed but must be picked up at the office. FOLLOW UP VISIT: Keep your scheduled follow-up appointment. Any questions, please call the office at . Current Hospital Diet Patient's current hospital diet: Regular Diet Discharge Diet Recommended Diet: Regular Diet Procedures Procedures Performed: 1. Lumbar decompression medial facetectomy foraminotomy L3-4 L4-5 L5-S1. #2 posterior spinal fusion L3-4 L4-5 L5-S1. #3 placement posterior segmental instrumentation L3-S1. #4 placement of locally harvested Fernandez's allograft in the posterior lateral gutters. #5 placement InFUSE collagen sponge, with master graft in the posterior lateral gutters. Pending Studies Studies pending at discharge: no Medical Emergencies . Who to Call and When: Medical Emergencies: If at any time you feel your situation is an emergency, please call 911 immediately. . Non-Emergent Contact Non-Emergency issues call your: Primary Care Provider . "Provider Documentation" section prepared by Galen Luo. . Interdisciplinary Professor Recommendations Interdisciplinary Professor Recommendations: Hospitalist consultation follow up Subjective This is a 61 year old F patient of orthopedic service who is post op back surgery on 08/25/17. Patient reports she has been working well with physical therapy yesterday. Denies shortness of breath or chest pain. Back pain is controlled. Physical Exam General Appearance: no apparent distress, sitting in chair Head: normocephalic, atraumatic Eyes: normal inspection, EOMI, sclerae normal ENT: hearing grossly normal Neck: supple, no JVD Respiratory/Chest: lungs clear, normal breath sounds, no respiratory distress Cardiovascular: regular rate, rhythm, no edema Abdomen/GI: normal bowel sounds, non tender, soft, no organomegaly Genitourinary: Ferrera Back: surgical dressing dry and intact, drain in place draining bloody drainage Extremities/Musculoskelatal: normal inspection, no calf tenderness, normal capillary refill Neurologic/Psych: no motor/sensory deficits, alert, normal mood/affect, oriented x 3 Skin: normal color, warm/dry Consultation recommendations / assessment This is a 61 year old F patient of orthopedic service who is post op Lumbar decompression medial facetectomy foraminotomy L3-4 L4-5 L5-S1; posterior spinal fusion L3-4 L4-5 L5-S1; placement posterior segmental instrumentation L3-S1 decompression fusion on 08/25/17 for history of Lumbar Spinal Stenosis and Spondylolisthesis Post-Operative Diagnosis Same Procedure(s) Performed 1. . #4 placement of locally harvested Fernandez's allograft in the posterior lateral gutters. #5 placement InFUSE collagen sponge, with master graft in the posterior lateral gutters. On labs, patient has anemia. Pre-op hgb 11.2 and post op Hgb 8.5. Differences in Hgb may be due to post-op blood loss during surgical procedure and from ALTON drain. Patient denies history of blood transfusions. Denies seeing blood in urine or in stools. Patient denies GI bleed history or use of blood thinners at home. Patient denies cardiac history of ischemic heart disease besides frequent PVCs. At this point, would advise trending the CBC daily and to transfuse blood product is Hgb less than 7 or if having symptomatic anemia Given post op blood loss, review of blood pressure today also low normotensive ranges. Losartan already given. Would hold off further Losartan for now for home treatment of hypertension as patient is not hypertensive. Restart when systolic blood pressure consistently above systolic of 120 Continue metoprolol for heart rate control Ferrera management as per orthopedics Continue bowel regimen to prevent narcotic induced ileus COPD history, breathing on room air, no signs of acute exacerbation GERD history, continue PPI Anxiety and depression history, continue bupropion DVT prophylaxis, SCDs as per ortho, Continue physical therapy sessions as tolerated
[2017-08-26] MEDS: HYDROmorphone INJ 0.5 MG/0.5 ML SYR IV PRN ×3 (14:37→22:26)
[2017-08-26] MEDS: ONDANSETRON INJ 2 MG/ML 2 ML VIAL IV PRN (18:50)
[2017-08-26] MEDS: DOCUSATE SODIUM/SENNA 50/8.6MG TAB PO SCH (21:45)
[2017-08-27] VITALS (11 sets, daily range): BP systolic 81–102; BP diastolic 47–65; PULSE 81–92; TEMP 37.3–37.7; O2SAT 81–94
[2017-08-27] MEDS: HYDROmorphone INJ 0.5 MG/0.5 ML SYR IV PRN (02:24)
[2017-08-27] MEDS: POLYETHYLENE (MIRALAX) 17 GM PACK PO SCH ×4 (05:38→23:18)
[2017-08-27] MEDS: OXYCODONE HCL IR 5 MG TAB (IMMEDIATE RELEASE) PO PRN ×4 (06:09→23:20)
[2017-08-27] MEDS: BUDESONIDE 0.25 MG/2 ML VIAL (PULMICORT) INH SCH (07:18)
[2017-08-27] MEDS: ALBUTEROL 0.083% NEBU SOLN 3 ML VIAL INH SCH (07:18)
[2017-08-27] MEDS: TIOTROPIUM BROMIDE 5 PUFF/90 MCG INH INH SCH (08:52)
[2017-08-27] MEDS: BuPROPion SR 150 MG TABCR PO SCH (08:53)
[2017-08-27] MEDS: BUDESONIDE/FORMOTEROL FUMARATE 160/4.5 60 PUFFS/INHALER INH SCH ×2 (08:53→20:47)
[2017-08-27] MEDS: ASPIRIN 81 MG ECTAB PO SCH (08:53)
[2017-08-27] MEDS: PANTOprazole SOD 40 MG TAB PO SCH (08:54)
[2017-08-27] MEDS: MONTELUKAST SOD 10 MG TAB PO SCH (08:54)
[2017-08-27] MEDS: METOPROLOL TARTRATE 25 MG TAB PO SCH ×2 (08:57→20:48)
--- NOTE | 2017-08-27 10:16 | Progress Note ---
Progress Note Date of Service Aug 27, 2017. Progress Note Hospitalist consultation follow up Subjective This is a 61 year old F patient of orthopedic service who is post op back surgery on 08/25/17. Patient was reporting acute pain of the left thigh yesterday. Feels better today Physical Exam General Appearance: no apparent distress Head: normocephalic, atraumatic Eyes: normal inspection, EOMI, sclerae normal ENT: hearing grossly normal Neck: supple, no JVD Respiratory/Chest: lungs clear, normal breath sounds, no respiratory distress Cardiovascular: regular rate, rhythm, no edema Abdomen/GI: normal bowel sounds, non tender, soft, no organomegaly Back: surgical dressing dry and intact, able to turn over to the side and sit up without acute back pain Extremities/Musculoskelatal: normal inspection, no calf tenderness, some reported tenderness when palpation of left thigh Neurologic/Psych: no motor/sensory deficits, alert, normal mood/affect, oriented x 3 Skin: normal color, warm/dry Consultation recommendations / assessment This is a 61 year old F patient of orthopedic service who is post op Lumbar decompression medial facetectomy foraminotomy L3-4 L4-5 L5-S1; posterior spinal fusion L3-4 L4-5 L5-S1; placement posterior segmental instrumentation L3-S1 decompression fusion on 08/25/17 for history of Lumbar Spinal Stenosis and Spondylolisthesis Patient here under orthopedic service for continuing inpatient physical therapy. Patient's pain appears to be controlled at this time on current regimen. Pain management as per orthopedics As mentioned in previous guidance consultant recommendations, patient has post-op anemia. Would recommend follow up CBC prior to orthopedics discharge. Blood pressure is controlled and still low normotensive ranges when off Losartan. Would hold off further Losartan for now for home treatment of hypertension as patient is not hypertensive. Restart when systolic blood pressure consistently above systolic of 120 Continue metoprolol for heart rate control COPD history, breathing on room air, no signs of acute exacerbation GERD history, continue PPI Anxiety and depression history, continue bupropion DVT prophylaxis, SCDs as per ortho, Continue physical therapy sessions as tolerated
[2017-08-27] MEDS ORDERED: KETOROLAC TROMETHAMINE 30 MG/ML VIAL IV STA (11:33)
--- NOTE | 2017-08-27 14:25 | Progress Note ---
Progress Note Date of Service Aug 27, 2017. Progress Note Patient's back pain is controlled. She is struggling with some left greater trochanteric bursitis. No other complaints. On exam she is good strength testing. He is tender to palpation of the left greater trochanter and left IT band. Excellent strength otherwise. Assessment status post multilevel lumbar decompression fusion. Plan at this time will continue therapy monitor ALTON output anticipate home in the next few days.
[2017-08-27] MEDS ORDERED: SODIUM CHLORIDE 0.9% 1000ML 1,000 ML IV ONE (16:15)
[2017-08-27 16:34] LABS: HEMATOCRIT 24.1 % (37-47); HEMOGLOBIN 8.1 g/dL (12.0-16.0); MEAN CORPUSCULAR HEMOGLOBIN 30.9 pg (25-34); MEAN PLATELET VOLUME 10.5 fL (7.4-10.4); PLATELET COUNT 208 K/uL (130-400); RED CELL DISTRIBUTION WIDTH CV 15.2 % (11.5-14.5); RED CELL DISTRIBUTION WIDTH SD 52.1 fL (36.4-46.3)
[2017-08-27 16:37] LABS: MEAN CORPUSCULAR HGB CONC 33.6 g/dl (32-36)
[2017-08-27] MEDS: KETOROLAC TROMETHAMINE 30 MG/ML VIAL IV PRN (18:19)
[2017-08-27] MEDS: DOCUSATE SODIUM/SENNA 50/8.6MG TAB PO SCH (20:48)
[2017-08-28] VITALS (13 sets, daily range): BP systolic 86–129; BP diastolic 57–75; PULSE 75–98; TEMP 36.8–37.6; O2SAT 90–98
[2017-08-28] MEDS: POLYETHYLENE (MIRALAX) 17 GM PACK PO SCH ×2 (06:57→12:30)
[2017-08-28] MEDS: OXYCODONE HCL IR 5 MG TAB (IMMEDIATE RELEASE) PO PRN ×2 (07:23→15:45)
[2017-08-28] MEDS: PANTOprazole SOD 40 MG TAB PO SCH (07:24)
[2017-08-28] MEDS: METOPROLOL TARTRATE 25 MG TAB PO SCH (07:25)
[2017-08-28] MEDS: ASPIRIN 81 MG ECTAB PO SCH (07:26)
[2017-08-28] MEDS: BuPROPion SR 150 MG TABCR PO SCH (07:26)
[2017-08-28] MEDS: TIOTROPIUM BROMIDE 5 PUFF/90 MCG INH INH SCH (07:26)
[2017-08-28] MEDS: MONTELUKAST SOD 10 MG TAB PO SCH (07:27)
[2017-08-28] MEDS: BUDESONIDE/FORMOTEROL FUMARATE 160/4.5 60 PUFFS/INHALER INH SCH (07:27)
[2017-08-28] MEDS: BUDESONIDE 0.25 MG/2 ML VIAL (PULMICORT) INH SCH (07:35)
[2017-08-28] MEDS: ALBUTEROL 0.083% NEBU SOLN 3 ML VIAL INH SCH (07:35)
[2017-08-28 08:29] LABS: HEMATOCRIT 23.2 % (37-47); HEMOGLOBIN 7.7 g/dL (12.0-16.0)
[2017-08-28] MEDS: KETOROLAC TROMETHAMINE 30 MG/ML VIAL IV PRN (11:27)
--- NOTE | 2017-08-28 17:16 | Discharge Summary ---
Orthopedic Discharge Summary Admission Date/Reason Aug 25, 2017 at 14:19 Spinal Stenosis. Discharge Date/Disposition Aug 28, 2017 Home Diagnosis Principal Diagnosis: Lumbar spinal stenosis Admission Physical Exam As per Admitting History & Physical. Hospital Course Patient underwent lumbar decompression fusion tolerated this well was taken to the orthopedic floor postoperatively. Postop day #1 she was up and amatory progressive postop day #2. 2 postop day #3 we did transfuse 1 unit she tolerated this well and was discharged home that evening. Discharge orders and instructions can be found on the chart for further review. Discharge Instructions Please refer to the electronic Patient Visit Report (Discharge Instructions) for additional information.
== END 2017-08-28 16:15 | disposition home or self-care (01) | DRG 460 ==
LOC: C.ACU 09:09 → C.3E 14:19 → ENRESERV 15:14
PROVIDERS: ADMIT Orthopaedic Surgery Orthopaedic Surgery of the Spine; ATTEND Orthopaedic Surgery Orthopaedic Surgery of the Spine
PROC: 0SG1071 Fusion of 2 or more Lumbar Vertebral Joints with Autologous Tissue Substitute, Posterior Approach, Posterior Column, Open Approach (ICD-10-PCS; principal; 2017-08-25 11:45)
DX: M48.061 Spinal stenosis, lumbar region without neurogenic claudication (principal); M70.62 Trochanteric bursitis, left hip; I10 Essential (primary) hypertension; Z88.8 Allergy status to other drugs, medicaments and biological substances; Z79.82 Long term (current) use of aspirin; M43.16 Spondylolisthesis, lumbar region; J44.9 Chronic obstructive pulmonary disease, unspecified; E78.5 Hyperlipidemia, unspecified; K21.9 Gastro-esophageal reflux disease without esophagitis; Z87.891 Personal history of nicotine dependence

== ENCOUNTER 2022-12-18 09:19 | Inpatient (IN) ==
--- NOTE | 2022-11-29 14:41 | PAT Medication Instructions ---
Medication Instructions Date of Service November 29, 2022 Home Medications albuterol sulfate 2.5 mg/3 mL (0.083 %) solution for nebulization 2.5 mg inhalation DAILY albuterol sulfate 90 mcg/actuation aerosol inhaler (Ventolin HFA) 2 puff inhalation QID PRN aspirin 81 mg capsule 81 mg PO QAM atorvastatin 40 mg tablet 40 mg PO PM budesonide 0.25 mg/2 mL suspension for nebulization 0.5 mg inhalation DAILY bupropion HCl 150 mg 24 hr tablet, extended release 150 mg PO QAM calcium carb-ergocalciferol (vit D2) 600 mg calcium-200 unit tablet 1 tab PO QAM fluticasone fur. 200 mcg-umeclid 62.5 mcg-vilant 25 mcg inhalat.powder (Trelegy Ellipta) 1 inh inhalation QAM losartan 25 mg tablet 25 mg PO QAM metoprolol tartrate 25 mg tablet 25 mg PO BID montelukast 10 mg tablet (Singulair) 10 mg PO QAM pantoprazole 40 mg tablet,delayed release 40 mg PO QAM Continue as directed albuterol sulfate 2.5 mg/3 mL (0.083 %) solution for nebulization 2.5 mg inhalation DAILY budesonide 0.25 mg/2 mL suspension for nebulization 0.5 mg inhalation DAILY ASK your prescriber and surgeon aspirin 81 mg capsule 81 mg PO QAM DO NOT take the morning of surgery calcium carb-ergocalciferol (vit D2) 600 mg calcium-200 unit tablet 1 tab PO QAM losartan 25 mg tablet 25 mg PO QAM Take morning of surgery With a small sip of water, OTHERWISE NOTHING TO EAT OR DRINK AFTER MIDNIGHT: albuterol sulfate 90 mcg/actuation aerosol inhaler (Ventolin HFA) 2 puff inhalation QID PRN(use if needed; please bring with you to hospital day of surgery if possible) bupropion HCl 150 mg 24 hr tablet, extended release 150 mg PO QAM fluticasone fur. 200 mcg-umeclid 62.5 mcg-vilant 25 mcg inhalat.powder (Trelegy Ellipta) 1 inh inhalation QAM metoprolol tartrate 25 mg tablet 25 mg PO BID montelukast 10 mg tablet (Singulair) 10 mg PO QAM pantoprazole 40 mg tablet,delayed release 40 mg PO QAM Take evening before surgery albuterol sulfate 90 mcg/actuation aerosol inhaler (Ventolin HFA) 2 puff inhalation QID PRN(if needed) atorvastatin 40 mg tablet 40 mg PO PM metoprolol tartrate 25 mg tablet 25 mg PO BID Other Notes If you have any questions please call us at [phone] or [phone] or [phone] or [phone]
--- NOTE | 2022-12-02 14:01 | Anesthesiology Consultation ---
Date of Service December 02, 2022 Assessment & Plan (1) Encounter for pre-operative examination: Chart Review Chart Review: Pending: Refer to Additional Notes / Consult section (pending PCP clearance 12/10/22, cardio clearance 12/12/22, ECHO 12/12/22, and pulm clearance 12/11/22) and Patient seen in Pre Admission Testing - Awaiting PCP clearance (Cedrick Long [facility] [place]) 12/10/22 - Awaiting cardio clearance (Dr. Bower) 12/12/22 - Awaiting ECHO results (being done at cardio appt 12/12/22) - Awaiting pulm clearance (Dr. Miriam Bailey) scheduled 12/11/22 Per PAT appt on 12/02/22, patient denies any recent travel or large group activities. Pt is vaccinated for Covid. Will leave to surgeon's discretion if preop Covid testing needed. Educated on importance of using Covid precautions one week prior to surgery L3-S1 decompression with fusion 08/25/17= Done under [facility] with MAC #3. ETT #7.0 Teaching & Discussion Pre-Anesthesia Teaching/Discussion Notes: Instructed NPO after midnight before surgery,except medications with 15 cc of water. Medication instructions provided according to the PAT guidelines. History Surgery Operation Date: 12/18/22 09:35 Proposed Procedures p L2-L3 Decompression, T12-S1 Fusion, L3-S1 Hardware Removal, Spinal Cord Monitoring - Galen Luo, Height/Weight Height: 4 ft 11 in Weight: 66.2 kg Allergies Allergy/AdvReac Type Severity Reaction Status Date / Time alendronate sodium AdvReac Severe "SEVERE Verified 11/29/22 13:25 BONE PAIN" Medications Home Medications Medication Instructions Recorded Confirmed Last Taken albuterol sulfate 2.5 mg/3 mL 2.5 mg inhalation DAILY 11/29/22 11/29/22 Unknown (0.083 %) solution for nebulization albuterol sulfate 90 mcg/actuation 2 puff inhalation QID PRN 11/29/22 11/29/22 Unknown aerosol inhaler (Ventolin HFA) Shortness Of Breath Or Wheezing aspirin 81 mg capsule 81 mg PO QAM 11/29/22 11/29/22 Unknown atorvastatin 40 mg tablet 40 mg PO PM 11/29/22 11/29/22 Unknown budesonide 0.25 mg/2 mL suspension 0.5 mg inhalation DAILY 11/29/22 11/29/22 Unknown for nebulization bupropion HCl 150 mg 24 hr tablet, 150 mg PO QAM 11/29/22 11/29/22 Unknown extended release calcium carb-ergocalciferol (vit 1 tab PO QAM 11/29/22 11/29/22 Unknown D2) 600 mg calcium-200 unit tablet fluticasone fur. 200 mcg-umeclid 1 inh inhalation QAM 11/29/22 11/29/22 Unknown 62.5 mcg-vilant 25 mcg inhalat.powder (Trelegy Ellipta) losartan 25 mg tablet 25 mg PO QAM 11/29/22 11/29/22 Unknown metoprolol tartrate 25 mg tablet 25 mg PO BID 11/29/22 11/29/22 Unknown montelukast 10 mg tablet 10 mg PO QAM 11/29/22 11/29/22 Unknown (Singulair) pantoprazole 40 mg tablet,delayed 40 mg PO QAM 11/29/22 11/29/22 Unknown release Past Medical History Medical History COPD (chronic obstructive pulmonary disease) follows w/ pulmonology @ [facility] [place]- uses Trelegy daily along with daily morning nebulizer and Pulmicort breathing stable Depression with anxiety Dyslipidemia Fibromyalgia GERD (gastroesophageal reflux disease) well controlled and stable History of COVID-19 12/2021- runny nose, congestion, body aches, fatigues; resolved Hypertension PAC (premature atrial contraction) controlled w/ krissyol- Dr Bower PVC (premature ventricular contraction) controlled w/ metoprolol- Dr Bower Exercise / Class Metabolic Activity II 4-5 Yardwork/Stairs/Walk up hill (one flight of stairs - no chest pain or SOB ) Past Family History Family History Other No family history of adverse response to anesthesia Past Surgical History Surgical History History of appendectomy History of esophagogastroduodenoscopy (EGD) History of hysterectomy History of lumbar surgery 2018- fusion Hx of cardiac catheterization 2014- no stents Hx of colonoscopy Hx of shoulder surgery 2020 right- rotator cuff repair Hx of submandibular gland removal 11/19/2022 - [facility] Past Anesthesia History No Hx of Anesthesia Complications and No Family Hx of Anesthesia Complications History of PONV No Hx of PONV and No Hx of Motion Sickness Social History Smoking Status: Former smoker tobacco type: cigarettes Smoking cigarettes per day: quit 21 yrs ago Do You Dip or Chew Tobacco: No Hx Alcohol Use: Yes (once per month) alcohol intake frequency: other Hx Substance Use: No substance use type: does not use Review of Systems Hx of blood transfusion 2017 s/p lumbar surgery Patient denies chest pain, shortness of breath, dyspnea on exertion, cough, wheezing, palpitations. No hx of seizures, stroke, PA, apnea/snoring. No hx of blood clots. Physical Exam Vital Signs VITALS BP 105/65 P 68 TEMP 97.9 SP02 96% RESP 16 Constitutional no acute distress ENMT Mouth: no TMJ clicking Thyromental Distance: > or= 3.5 Finger Breadths (3.5) Mallampati Class: II Top front teeth crowned Neck neck extension not limited Respiratory normal respiratory effort; no respiratory distress Auscultation: lungs clear to auscultation bilaterally; no wheezes Cardiovascular Rate/Rhythm: regular rate and regular rhythm Heart Sounds: no murmur Vessels: no carotid bruit Musculoskeletal Spine: no pain with cervical ROM Extremities: extremities normal to inspection Psychiatric Orientation: alert Lab Results Anesthesia Preop Results Results Anesthesia Widget: WBC 9.51 K/ul (4.8-10.8) 12/02/22 Hgb 12.6 g/dl (12.0-16.0) 12/02/22 Hct 36.5 % (37.0-47.0) L 12/02/22 Plt 323 K/uL (130-400) 12/02/22 Na 136 mmol/L (136-145) 12/02/22 K 3.6 mmol/L (3.5-5.1) 12/02/22 Cl 97 mmol/L (98-107) L 12/02/22 CO2 33 mmol/L (21-32) H 12/02/22 BUN 15 mg/dl (6-23) 12/02/22 Creat 1.18 mg/dl (0.6-1.2) 12/02/22 Glucose Level 76 mg/dl (70-99(Fasting)) 12/02/22 PT 10.8 Seconds (9.0-12.0) 12/02/22 PTT 27.3 Seconds (21.0-31.0) 12/02/22 INR 1.0 (0.9-1.1) 12/02/22 Urine Color Dark Yellow 12/02/22 Urine Appearance Clear (Clear) 12/02/22 Urine pH 6.5 (4.5-7.5) 12/02/22 Urine Specific [place] 1.023 (1.000-1.030) 12/02/22 Urine Protein Negative (Negative) 12/02/22 Urine Glucose (UA) Negative (Negative) 12/02/22 Urine Ketones Trace (Negative) H 12/02/22 Urine Blood Negative (Negative) 12/02/22 Urine Nitrite Negative (Negative) 12/02/22 Urine Bilirubin Negative (Negative) 12/02/22 Urine Urobilinogen Negative (Negative) 12/02/22 Urine Leukocyte Esterase Negative (Negative) 12/02/22 Blood Type A Positive 12/02/22 Antibody Screen NEGATIVE 12/02/22 Testing Electrocardiogram Date: 12/02/22 Findings: + NSR @ (63bpm ) and + no change from (July 30, 2017 per cardio) Incomplete RBBB Chest X-Ray Date: 12/02/22 Findings: + NAD COVID-19 Risk Screen Screening Information COVID-19 Screen Date: 12/02/22 Exposure 21 Days Family/Household +COVID Last 21 Days: No Exposure 10 Days Any COVID Exposure Last 10 Days: No Symptoms Last 10 Days Experienced COVID Sx Last 10 Days: No + COVID 0-90 Days COVID + in Last 0-90 Days: No Risk Plan COVID Risk Plan: No Risk Identified Patient Education COVID Preop Screening Education Complete: Yes
[~2022-12-18 09:19] MED LIST changes: +ACETAMINOPHEN 500 MG TAB PO SCH; -ACT/35 PO; -ALBU2SYP9 INH; -ASPI81TA28 PO; -ATROPINE SULFATE 0.1 MG/ML 5ML SYR IV PRN; -BUDE0.253 NEB; -BUPR-79 PO; -CALC500C70 PO; -CEFAZOLIN 1000MG IV PUSH 7.5 ML IV SCH; +CeleBREX 200 MG CAP PO SCH; -EpHEDrine SULFATE INJ 50 MG/ML AMP IV PRN; -FENTANYL CITRATE INJ 50 MCG/1 ML 2 ML VIAL IV PRN; +GABAPENTIN 300 MG CAP PO SCH; -HYDROmorphone INJ 1 MG/ML SYR IV PRN; -IBUP-1050 PO; -LABETALOL HCL IV 5 MG/ML 20ML IV PRN; -LACTATED RINGER'S 1000ML 1,000 ML IV SCH; -LOSA50TA6 PO; +LR 15ML/HR IV SCH; +LR 60ML/HR IV SCH; -METO25TA56 PO; -MONT1TAB3 PO; -NAPR1TAB9 PO; -ONDANSETRON INJ 2 MG/ML 2 ML VIAL IV PRN; -PANT40TA PO; -PHENYLEPHRINE 100MCG/ML 5ML SYR IV PRN; -PROMETHAZINE HCL INJ 12.5 MG in SODIUM CHLORIDE 0.9% 50ML 50 ML IV PRN; -PRVHFAIN INH; -SPRIN/30 INH; -SYMIN160 INH; +ceFAZolin 2000MG 2,000 MG/15 ML SYR IV SCH
[2022-12-18] MEDS ORDERED: PROMETHAZINE HCL 6.25 MG in SODIUM CHLORIDE 0.9% 50 ML IV PRN (10:45)
[2022-12-18] MEDS ORDERED: ATROPINE SULFATE 0.1 MG/ML 10ML SYR IV PRN (10:45)
[2022-12-18] MEDS ORDERED: LABETALOL HCL IV 5 MG/ML 20ML IV PRN (10:45)
[2022-12-18] MEDS ORDERED: ALBUTEROL 0.083% NEBU SOLN 3 ML VIAL INH PRN (10:45)
--- NOTE | 2022-12-18 10:45 | History & Physical Bridge Note ---
Date of Service December 18, 2022 History & Physical Bridge Note I have examined the patient, reviewed the History & Physical and in the interval since the performance of the History & Physical I have noted the following changes of clinical significance: no changes noted
--- NOTE | 2022-12-18 10:48 | History & Physical Report ---
Date of Service December 18, 2022 Assessment & Plan (1) Neurogenic claudication due to lumbar spinal stenosis: Plan: L2-L3 decompression, T12-S1 fusion, L3-S1 hardware removal History of Present Illness Chief Complaint: back and bilateral leg pain Primary Care Provider: Cedrick Long This is a 67-year-old female who presents with chronic persistent back and leg pain after failing course of nonoperative care she is here for surgical invention. Allergies Allergy/AdvReac Type Severity Reaction Status Date / Time alendronate sodium AdvReac Severe "SEVERE Verified 12/18/22 09:38 BONE PAIN" Home Medications Medication Instructions Recorded Confirmed Type albuterol sulfate 2.5 mg/3 mL 2.5 mg inhalation DAILY 11/29/22 12/18/22 History (0.083 %) solution for nebulization albuterol sulfate 90 mcg/actuation 2 puff inhalation QID PRN 11/29/22 12/18/22 History aerosol inhaler (Ventolin HFA) Shortness Of Breath Or Wheezing aspirin 81 mg capsule 81 mg PO QAM 11/29/22 12/18/22 History atorvastatin 40 mg tablet 40 mg PO PM 11/29/22 12/18/22 History budesonide 0.25 mg/2 mL suspension 0.5 mg inhalation DAILY 11/29/22 12/18/22 History for nebulization bupropion HCl 150 mg 24 hr tablet, 150 mg PO QAM 11/29/22 12/18/22 History extended release calcium carb-ergocalciferol (vit 1 tab PO QAM 11/29/22 12/18/22 History D2) 600 mg calcium-200 unit tablet fluticasone fur. 200 mcg-umeclid 1 inh inhalation QAM 11/29/22 12/18/22 History 62.5 mcg-vilant 25 mcg inhalat.powder (Trelegy Ellipta) losartan 25 mg tablet 25 mg PO QAM 11/29/22 12/18/22 History metoprolol tartrate 25 mg tablet 25 mg PO BID 11/29/22 12/18/22 History montelukast 10 mg tablet 10 mg PO QAM 11/29/22 12/18/22 History (Singulair) pantoprazole 40 mg tablet,delayed 40 mg PO QAM 11/29/22 12/18/22 History release Past Med/Surg History Medical History COPD (chronic obstructive pulmonary disease) follows w/ pulmonology @ [facility] [place]- uses Trelegy daily along with daily morning nebulizer and Pulmicort breathing stable Depression with anxiety Dyslipidemia Fibromyalgia GERD (gastroesophageal reflux disease) well controlled and stable History of COVID-19 12/2021- runny nose, congestion, body aches, fatigues; resolved Hypertension PAC (premature atrial contraction) controlled w/ metoprolol- Dr Bower PVC (premature ventricular contraction) controlled w/ metoprolol- Dr oBwer Surgical History History of appendectomy History of esophagogastroduodenoscopy (EGD) History of hysterectomy History of lumbar surgery 2017- fusion Hx of cardiac catheterization 2014- no stents Hx of colonoscopy Hx of shoulder surgery 2020 right- rotator cuff repair Hx of submandibular gland removal 11/19/2022 - [facility] Family History Other No family history of adverse response to anesthesia Social History Smoking Status: Former smoker Cigarettes Per Day: quit 21 yrs ago; Second Hand Exposure: No; Do You Dip or Chew Tobacco: No; Tobacco Cessation Education Requested by Patient: No Hx Alcohol Use: Yes (once per month) Hx Substance Use: No Preferred Language: Vietnamese Communication Ability: Effective Payroll Officer Required: No Beliefs That Will Affect Care: None Current Living Situation: Spouse Other Information That Helps Us Care for You: No Feels Safe at Home: Yes Safety Concerns: Feels Safe At This Time Assistive Devices: Contacts and Glasses Physical Exam Physical Exam: Patient is alert and oriented Heart regular rhythm Lungs clear Results & Data Results & Data Vital Signs (Past 12 Hours) Vital Signs Temp Pulse Resp BP Pulse Ox O2 Del Method 12/18/22 09:43 36.4 C L 84 18 150/102 H 99 Room Air
[2022-12-18] MEDS ORDERED: ceFAZolin 330 MG/ML 1 GM VIAL ONE (11:06)
[2022-12-18] MEDS ORDERED: BUPIVACAINE/EPINEPHRINE 0.25% 1:200,000 30 ML VIAL ONE (11:06)
[2022-12-18] MEDS ORDERED: MIDAZOLAM HCL 1 MG/ML 2ML VIAL ONE (11:13)
[2022-12-18] MEDS ORDERED: fentaNYL citrate PF 100 MCG/2 ML VIAL ONE ×2 (11:13→12:36)
[2022-12-18] MEDS ORDERED: ROCURONIUM BROMIDE 10 MG/ML 5 ML VIAL IV ONE ×2 (11:15→12:02)
[2022-12-18] MEDS ORDERED: DEXAMETHASONE SOD INJ 4 MG/ML VIAL ONE (11:15)
[2022-12-18] MEDS ORDERED: LIDOCAINE 2% 2 ML VIAL/AMP(20MG/ML) INFIL ONE (11:15)
[2022-12-18] MEDS ORDERED: PROPOFOL IV EMULSION 10 MG/ML 20 ML VIAL IV ONE (11:15)
[2022-12-18] MEDS ORDERED: ONDANSETRON INJ 2 MG/ML 2 ML VIAL ONE (11:15)
[2022-12-18] MEDS ORDERED: GLYCOPYRROLATE 0.2 MG/ML VIAL ONE (12:05)
[2022-12-18] MEDS ORDERED: diphenhydrAMINE 50 MG/ML VIAL ONE (12:05)
[2022-12-18] MEDS ORDERED: FLOSEAL HEMOSTATIC MATRIX 10ML TOP ONE (12:11)
[2022-12-18] MEDS ORDERED: SUGAMMADEX SODIUM 200 MG/2 ML VIAL IV ONE (13:22)
--- NOTE | 2022-12-18 13:31 | Operative Report ---
Post Operative Report Pre & Post Diagnosis Operation Date: 12/18/22 10:55 Pre-Op Diagnosis: Lumbar spinal stenosis with neurogenic claudication Post-Op Diagnosis: Same I identified the patient and participated in the time-out.: Yes Procedure Operation Date: 12/18/22 10:55 Actual Procedures #1 removal of posterior instrumentation L3-S1. #2 exploration of fusion L3-S1. #3 lumbar decompression bilaterally facetectomies and foraminotomies L1-L2 L3. #4 posterior spinal fusion T11-L3. #5 placement posterior segmental instrumentation T11-S1. #6 interbody fusion L2-L3. #7 placement of Spira 11 x 26 mm at L2-3 per #8 placement locally harvested morselized autograft posterior gutters. #9 placement of I factor in the interbody space and infuse collagen sponge from mass graft in the posterior lateral gutters. Surgeon Galen Luo DO Pipe Cleaner Maria Teresa Redd Estimated Blood Loss 200 Findings Consistent with Post-Op Diagnosis Specimens None Indications This is a 67-year-old female known to me the presents above-mentioned diagnosis after failed extensive course of nonoperative care she is here for surgical invention. Description of Procedure Patient was met with identified informed consent obtained. Patient was then taken to the operative suite underwent patient placed in a prone position the [place] table top Padilla frame. All bony prominences well-padded eyes inspected to ensure no external pressure placed upon the. This point the lumbar spine was prepped and draped in a sterile fashion. Sharp dissection with the assistance of Bovie cautery form down to and exposing the lamina and transverse processes of T11-T12 L1-L2 and the instrumentation L3-L4-L5 and S1 levels bilaterally. I then proceeded move the hardware bilaterally explore the fusion mass noting it to be mature and intact. Then formed a complete laminectomy of L2 followed by laminectomy of L1 including bilaterally facetectomies and foraminotomies addressing severe spinal stenosis. Pedicle screws then placed in T11-T12 L1-L2-L3 L5 and S1 bilaterally with assistance of fluoroscopy and the properly sized de contoured and placed. Bilateral transforaminal approach on the right complete discectomy of L2-L3 was performed endplates curetted to subcortical bleeding bone and a 11 x 26 mm Spira cage with I factor tapped in position. The rods then locked in final position bilaterally. The transverse processes of T8 11 T12 L1-L2 and L3 were burred to subcortically bone. Infuse collagen sponge bone mass graft locally harvested morselized allograft was placed in the posterior gutters. 15 round ALTON drain inserted. The incision was then closed with 1 Vicryl the fascia 2-0 Vicryl subcutaneously and 4 Monocryl for final skin closure. Steri-Strips sterile dressing placed. Patient awakened taken to PACU stable condition. Please note spinal cord monitoring was utilized at the procedure no changes noted. Lastly Maria Teresa Redd was present at the entire surgeon while the patient positioning complex portion of the surgery and final skin closure. I attest to the content of the Intraoperative Record and any orders documented therein. Any exceptions are noted below.
[2022-12-18] MEDS: HYDROmorphone INJ 1 MG/ML SYRINGE IV PRN ×7 (14:09→20:51)
--- NOTE | 2022-12-18 14:33 | Fluoroscopy Report ---
FL lumbar spine 2-3V CLINICAL HISTORY: L2-L3 DECOMPRESSION T12-S1 FUSION L3-S1 HW REMOVAL COMPARISON STUDY: 08/25/2017 FLUOROSCOPY TIME: 47 seconds FLUOROSCOPY IMAGES: 4 EXPOSURE DOSE: 14.09 mGy FINDINGS: Postoperative biological fusion hardware noted at T12-S1. Interval removal of the pedicle s crews at L4. L3-L4 discectomy. Hardware appears intact. No unexpected opaque foreign bodies identifie d. Unchanged anterolisthesis L4 on L5. Note that the images were submitted following completion of th e surgery. IMPRESSION: Fluoroscopic assistance as above. ACT 112: Negative or not required by law. Electronically signed by: Floyd Jennings M.D. 12/18/2022 2:32 PM
--- NOTE | 2022-12-18 14:58 | Anesthesiology Progress Note ---
Date of Service December 18, 2022 Anesthesia Post Procedure Vital Signs Vital Signs: Temp Pulse Pulse Resp BP Pulse Ox O2 Del Method 12/18/22 14:45 82 19 111/83 97 Nasal Cannula 12/18/22 14:35 82 14 123/75 96 Nasal Cannula 12/18/22 14:25 75 16 102/78 99 Nasal Cannula 12/18/22 14:15 84 14 117/85 100 Nasal Cannula 12/18/22 14:05 92 H 25 H 110/85 96 Nasal Cannula 12/18/22 13:58 36.3 C L 97 H 12 139/91 100 Oxymask 12/18/22 09:43 36.4 C L 84 18 150/102 H 99 Room Air O2 Flow Rate 12/18/22 14:45 2 12/18/22 14:35 2 12/18/22 14:25 2 12/18/22 14:15 2 12/18/22 14:05 4 12/18/22 13:58 4 12/18/22 09:43 Pain Intensity Back: Pain Intensity: 2 Transfer of Care Handoff Completed per policy Notes Mental Status: alert / awake / arousable Patient Amnestic to Procedure: Yes Nausea / Vomiting: adequately controlled Pain: adequately controlled Airway Patency, RR, SpO2: stable & adequate BP & HR: stable & adequate Hydration State: stable & adequate Anesthetic Complications: no major complications apparent
[2022-12-18] MEDS ORDERED: LORazepam 2 MG/1 ML VIAL IV PRN (15:26)
[2022-12-18] MEDS ORDERED: bisacodyL 10 MG SUPP PR PRN (15:26)
[2022-12-18] MEDS ORDERED: NALOXONE HCL 0.4 MG/1 ML VIAL/CARP IV PRN (15:26)
[2022-12-18] MEDS ORDERED: ALUMINUM/MAGNESIUM SUSP 30 ML UDC PO PRN (15:26)
[2022-12-18] MEDS ORDERED: METOCLOPRAMIDE HCL INJ 5 MG/ML 2 ML VIAL IV PRN (15:26)
[2022-12-18] MEDS ORDERED: ONDANSETRON 4 MG OD TAB PO PRN (15:26)
[2022-12-18] MEDS ORDERED: DO NOT ADMINISTER FLU VACCINE PRN (15:26)
[2022-12-18] MEDS ORDERED: ONDANSETRON INJ 2 MG/ML 2 ML VIAL IV PRN (15:26)
[2022-12-18] MEDS ORDERED: PROMETHAZINE HCL 12.5 MG in SODIUM CHLORIDE 0.9% 50 ML IV PRN (15:26)
[2022-12-18] MEDS ORDERED: hydrOXYzine HCl 25 MG TAB PO PRN (15:26)
[2022-12-18] MEDS ORDERED: FAMOTIDINE 20 MG TAB PO PRN (15:26)
[2022-12-18] MEDS ORDERED: DO NOT ADMINISTER PNEUMOCOCCAL VACCINE PRN (15:26)
[2022-12-18] MEDS ORDERED: diphenhydrAMINE Capsule 25 MG CAP PO PRN (15:26)
[2022-12-18] MEDS ORDERED: LORazepam 0.5 MG TAB PO PRN (15:26)
[2022-12-18] MEDS ORDERED: HYDROmorphone INJ 0.5 MG/0.5 ML SYR IV PRN (15:26)
[2022-12-18] MEDS ORDERED: MAGNESIUM HYDROXIDE SUSP 30 ML UDC PO PRN (15:26)
[2022-12-18] MEDS ORDERED: ACETAMINOPHEN 1,000 MG/100 ML VIAL IV PRN (15:26)
[2022-12-18] MEDS ORDERED: ALBUTEROL HFA 8 GM INHALER INH PRN (15:26)
[2022-12-18] MEDS ORDERED: SOD PHOSPHATE/SOD BIPHOSPHATE ENEMA 132 ML BTL PR PRN (15:26)
--- NOTE | 2022-12-18 16:37 | Consultation ---
Date of Consultation December 18, 2022 Assessment & Plan (1) Neurogenic claudication due to lumbar spinal stenosis: (2) COPD (chronic obstructive pulmonary disease): (3) Dyslipidemia: (4) Hypertension: (5) Depression with anxiety: (6) PAC (premature atrial contraction): (7) PVC (premature ventricular contraction): Plan Ms. Meehan is a 67 year old female that presented to the [facility] today for an elective L2-L3 decompression with T12-S1 fusion procedure under the care of Dr. Luo after failed conservative management. Additional past medical history includes COPD, HTN, HLD, depression and anxiety, and GERD. In the room, patient pleasant and diana to talk to. Noticed her dressing was saturated on her lower back; suspect ALTON drain dislodged as no ALTON output in bulb or tubing. Nursing aware and will change dressing and notify primary team. Neurogenic Claudication due to lumbar spinal stenosis: POD#0 s/p L2-L3 decompression; T12-S1 fusion under the care of Dr. Luo. Per ortho for pain control, wound care, anticoagulation and activities. Monitor H&H, EBL: 200mL. ALTON drain x1 12/02/22: preop Hgb 12.6; trend in a.m. continue incentive spirometry PT/OT when appropriate COPD: Follows with pulmonary [facility]. Uses Trelegy Ellipta, daily Ventolin inhalers and Singulair; continue No SOB or use of accessory muscle use post op HTN: History of PAC/PVC: PAC/PVC from 2014; had holter monitor;no sustained VT Takes metoprolol and losartan; continue Normotensive postop HLD: Takes atorvastatin; continue Depression and anxiety: Takes Wellbutrin; continue GERD: Takes Pantoprazole; continue Disposition: PCP: Dr. Long Code Status: Full Code VTE Prophylaxis: Per admitting team I spent a total of 60 minutes coordinating, documenting, and providing care for this patient excluding time spent in the performance of separately billed services. All of the aforementioned completed while collaborating with the assigned attending physician for a full treatment plan. Please see their addendum for further details. Supervising Physician Co-Signing Physician Notes Attending addendum: The patient was seen and examined in medical floor in presence of the daughter She is status post lumbar decompression and fusion and has been feeling much better with minimal discomfort in the lumbar area Denies any numbness or tingling in the extremities and denies any other symptoms On examination No apparent distress at rest Hemodynamically stable Chest-clear to auscultate bilaterally Heart S1, S2 regular Abdomen-benign- Extremities-negative for any edema DESK LIEUTENANT-alert, awake and oriented x3 Her labs, medications and imaging studies reviewed Status post lumbar decompression fusion with COPD, hypertension hyperlipidemia, anxiety and depression Remains medically stable-we will monitor hemoglobin and PRP Agree with assessment and plan as outlined above by Lis Zhong History of Present Illness Requesting Physician: Dr. Luo Reason for Consultation: post-operative medical management Attending Physician: Galen Luo, DO History of Present Illness Ms. Meehan is a 67 year old female that presented to the [facility] today for an elective L2-L3 decompression with T12-S1 fusion procedure under the care of Dr. Luo after failed conservative management. ECHO from 2015: EF 55-60%, RV normal, mild to moderate TR, G1DDx. Additional past medical history includes COPD (Follows with [facility]) HTN, H/O PAC/PVC, depression and anxiety, and GERD.She said she was told she had a RBBB with conduction delay in 2015; she had a heart cath that was normal in 2015. She is sitting upright in her bed in no apparent distress; able to answer all questions; pain is controlled. Denies CHOI, dizziness, SOB, CP, palpitations, N/V/D, abdominal pain and tenderness, recent falls or trauma. When I was in the room, her lower back dressing was saturated through to the bed linens without ALTON drainage. Nursing aware and suspect ALOTN may be dislodged; they will notify primary team. [facility] Hospitalist service consulted for post-operative medical management. Please see A/p for further details. We are available 16/12 for additional assistance or questions via [place] [employer]. Allergies Allergy/AdvReac Type Severity Reaction Status Date / Time alendronate sodium AdvReac Severe "SEVERE Verified 12/18/22 09:38 BONE PAIN" Home Medications Medication Instructions Recorded Confirmed Type albuterol sulfate 2.5 mg/3 mL 2.5 mg inhalation DAILY 11/29/22 12/18/22 History (0.083 %) solution for nebulization albuterol sulfate 90 mcg/actuation 2 puff inhalation QID PRN 11/29/22 12/18/22 History aerosol inhaler (Ventolin HFA) Shortness Of Breath Or Wheezing aspirin 81 mg capsule 81 mg PO QAM 11/29/22 12/18/22 History atorvastatin 40 mg tablet 40 mg PO PM 11/29/22 12/18/22 History budesonide 0.25 mg/2 mL suspension 0.5 mg inhalation DAILY 11/29/22 12/18/22 History for nebulization bupropion HCl 150 mg 24 hr tablet, 150 mg PO QAM 11/29/22 12/18/22 History extended release calcium carb-ergocalciferol (vit 1 tab PO QAM 11/29/22 12/18/22 History D2) 600 mg calcium-200 unit tablet fluticasone fur. 200 mcg-umeclid 1 inh inhalation QAM 11/29/22 12/18/22 History 62.5 mcg-vilant 25 mcg inhalat.powder (Trelegy Ellipta) losartan 25 mg tablet 25 mg PO QAM 11/29/22 12/18/22 History metoprolol tartrate 25 mg tablet 25 mg PO BID 11/29/22 12/18/22 History montelukast 10 mg tablet 10 mg PO QAM 11/29/22 12/18/22 History (Singulair) pantoprazole 40 mg tablet,delayed 40 mg PO QAM 11/29/22 12/18/22 History release Patient History Medical History (Updated 12/18/22 @ 16:34 by DENIS Harman) COPD (chronic obstructive pulmonary disease) follows w/ pulmonology @ [facility] [place]- uses Trelegy daily along with daily morning nebulizer and Pulmicort breathing stable Depression with anxiety Dyslipidemia Fibromyalgia GERD (gastroesophageal reflux disease) well controlled and stable History of COVID-19 12/2021- runny nose, congestion, body aches, fatigues; resolved Hypertension PAC (premature atrial contraction) controlled w/ oprolol- Dr Bower PVC (premature ventricular contraction) controlled w/ metoprolol- Dr Bower Surgical History History of appendectomy History of esophagogastroduodenoscopy (EGD) History of hysterectomy History of lumbar surgery 2017- fusion Hx of cardiac catheterization 2014- no stents Hx of colonoscopy Hx of shoulder surgery 2020 right- rotator cuff repair Hx of submandibular gland removal 11/19/2022 - [facility] Family History Other No family history of adverse response to anesthesia Social History Smoking Status: Former smoker Cigarettes Per Day: quit 21 yrs ago; Second Hand Exposure: No; Do You Dip or Chew Tobacco: No; Tobacco Cessation Education Requested by Patient: No Hx Alcohol Use: Yes (once per month) Hx Substance Use: No Preferred Language: Korean Communication Ability: Effective Equipment Services Associate Required: No Beliefs That Will Affect Care: None Current Living Situation: Spouse Other Information That Helps Us Care for You: No Feels Safe at Home: Yes Safety Concerns: Feels Safe At This Time Assistive Devices: Contacts and Glasses Review of Systems Review of Systems: Neuro: (-) Falls, trauma, slurred speech HEENT: (-) CHOI, dizziness, dysphagia, visual or auditory changes CV: (-) CP, palpitations, swelling Resp: (-) SOB GI: (-) appetite changes, N/V/D, bowel changes : (-) urinary changes Skin: (-) rashes Psych: (-) anxiety, depression Physical Exam Physical Exam: Neuro: AAOx4, PERRLA, no aphagia, memory changes, CNII-XII grossly intact HEENT: head normocephalic, moist mucus membranes CV: S1/S2, (-) M/G/R, (-) edema, cap refill < 3 seconds ALTON drain x1 no output in bulb or tubing Resp: Lungs CTA in all mary. On RA GI: Abdomen S/NT/ND, Ax4 bowel sounds, (-) CVA tenderness Musculoskeletal: 5/5 B/L UE strength, 5/5 B/L LE strength. No gait disturbance Skin: (-) rashes , (-) erythema. Psych: euthymic mood Results & Data Vital Signs (Past 12 Hours) Vital Signs Temp Pulse Pulse Resp BP Pulse Ox O2 Del Method 12/18/22 16:05 36.7 C 84 14 103/70 98 Nasal Cannula 12/18/22 15:05 Nasal Cannula 12/18/22 15:05 36.5 C 84 16 110/71 98 Nasal Cannula 12/18/22 15:35 36.5 C 84 14 111/77 100 Nasal Cannula 12/18/22 14:55 36.3 C L 84 14 107/72 95 Nasal Cannula 12/18/22 14:45 82 19 111/83 97 Nasal Cannula 12/18/22 14:35 82 14 123/75 96 Nasal Cannula 12/18/22 14:25 75 16 102/78 99 Nasal Cannula 12/18/22 14:15 84 14 117/85 100 Nasal Cannula 12/18/22 14:05 92 H 25 H 110/85 96 Nasal Cannula 12/18/22 13:58 36.3 C L 97 H 12 139/91 100 Oxymask 12/18/22 09:43 36.4 C L 84 18 150/102 H 99 Room Air O2 Flow Rate 12/18/22 16:05 2 12/18/22 15:05 2 12/18/22 15:05 2 12/18/22 15:35 2 12/18/22 14:55 2 12/18/22 14:45 2 12/18/22 14:35 2 12/18/22 14:25 2 12/18/22 14:15 2 12/18/22 14:05 4 12/18/22 13:58 4 12/18/22 09:43 Diagnostic Findings Lumbar Spine X-Ray 12/18/22 10:55 FL lumbar spine 2-3V CLINICAL HISTORY: L2-L3 DECOMPRESSION T12-S1 FUSION L3-S1 HW REMOVAL COMPARISON STUDY: 08/25/2017 FLUOROSCOPY TIME: 47 seconds FLUOROSCOPY IMAGES: 4 EXPOSURE DOSE: 14.09 mGy FINDINGS: Postoperative biological fusion hardware noted at T12-S1. Interval removal of the pedicle screws at L4. L3-L4 discectomy. Hardware appears intact. No unexpected opaque foreign bodies identified. Unchanged anterolisthesis L4 on L5. Note that the images were submitted following completion of the surgery. IMPRESSION: Fluoroscopic assistance as above. ACT 112: Negative or not required by law. Electronically signed by: Floyd Jennings M.D. 12/18/2022 2:32 PM
[2022-12-18] MEDS: LACTATED RINGER'S 1,000 ML IV SCH (17:50)
[2022-12-18] MEDS: oxyCODONE HCL IR 5 MG TAB (IMMEDIATE RELEASE) PO PRN ×2 (19:19→23:29)
[2022-12-18] MEDS: ceFAZolin 1000MG 1,000 MG/7.5 ML SYR IV SCH (19:21)
[2022-12-18] MEDS: ATORVASTATIN 40 MG TAB PO SCH (21:28)
[2022-12-18] MEDS: DOCUSATE SODIUM/SENNA 50/8.6MG TAB PO SCH (21:28)
[2022-12-18] MEDS: METOPROLOL TARTRATE 25 MG TAB PO SCH (21:29)
[2022-12-19] MEDS: LACTATED RINGER'S 1,000 ML IV SCH ×2 (03:09→12:29)
[2022-12-19] MEDS: ceFAZolin 1000MG 1,000 MG/7.5 ML SYR IV SCH (03:10)
[2022-12-19] MEDS: HYDROmorphone INJ 1 MG/ML SYRINGE IV PRN (03:10)
[2022-12-19] MEDS: POLYETHYLENE (MIRALAX) 17 GM PACK PO SCH ×4 (05:53→23:04)
[2022-12-19 06:27] LABS: Basophils # (auto) 0.03 K/uL (0-0.2); Basophils % (auto) 0.2 %; Eosinophils # (auto) 0.12 K/uL (0-0.50); Hematocrit (blood only) 25.7 % (37.0-47.0); Hemoglobin 8.6 g/dl (12.0-16.0); Immature Granulocytes # (auto) 0.03 K/uL (0.01-0.20); Immature Granulocytes % (auto) 0.2 %; Lymphocytes # (auto) 1.57 K/uL (1.2-3.4); Lymphocytes % (auto) 12.8 %; Mean Corpuscular Hemoglobin 32.1 pg (25.0-34.0); Mean Corpuscular Hgb Conc 33.5 g/dL (32.0-36.0); Mean Corpuscular Volume 95.9 fL (80.0-100.0); Mean Platelet Volume 10.4 fL (9.4-12.4); Monocytes % (auto) 13.9 %; Neutrophils # (auto) 8.81 K/uL (1.40-6.50); Neutrophils % (auto) 71.9 %; Platelet Count 262 K/uL (130-400); RDW Coefficient of Variation 12.6 % (11.5-14.5); RDW Standard Deviation 43.8 fL (36.4-46.3); Red Blood Count 2.68 M/uL (4.20-5.40); White Blood Count 12.26 K/ul (4.8-10.8)
[2022-12-19 06:45] LABS: Est GFR (African American) 74.7 ml/min; Est GFR (Non-African American) 64.5 ml/min; Potassium 3.4 mmol/L (3.5-5.1)
[2022-12-19] MEDS: oxyCODONE HCL IR 5 MG TAB (IMMEDIATE RELEASE) PO PRN ×3 (07:10→17:49)
[2022-12-19] MEDS ORDERED: ALBUTEROL 0.083% NEBU SOLN 3 ML VIAL ONE (07:22)
[2022-12-19] MEDS: BUDESONIDE 0.25 MG/2 ML VIAL (PULMICORT) INH SCH (07:33)
[2022-12-19] MEDS: ALBUTEROL 0.083% NEBU SOLN 3 ML VIAL INH SCH (07:34)
[2022-12-19] MEDS: ASPIRIN 81 MG ECTAB PO SCH (08:53)
[2022-12-19] MEDS: CALCIUM 600MG + VIT D 400 IU TAB PO SCH (08:54)
[2022-12-19] MEDS: buPROPion XL 150 MG TABCR PO SCH (08:54)
[2022-12-19] MEDS: FLUTICASONE FUROATE 200MCG 14 PUFFS/INHALER INH SCH (08:55)
[2022-12-19] MEDS: LOSARTAN POTASSIUM 25 MG TAB PO SCH (08:56)
[2022-12-19] MEDS: MONTELUKAST SODIUM 10 MG TABLET PO SCH (08:56)
[2022-12-19] MEDS: METOPROLOL TARTRATE 25 MG TAB PO SCH ×2 (08:56→20:51)
[2022-12-19] MEDS: PANTOprazole 40 MG TAB PO SCH (08:58)
[2022-12-19] MEDS: UMECLIDINIUM/VILANTEROL 62.5/25MCG 7 PUFFS/INHALER INH SCH (08:58)
[2022-12-19] MEDS ORDERED: NON-FORMULARY MEDICATION (Fluticasone-Umeclidin-Vilanter [Trelegy Ellipta] 200-62.5-25 mcg INH SCH (09:00)
[2022-12-19] MEDS: dexAMETHasone 6 MG in SYRINGE 0 ML IV SCH (09:01)
--- NOTE | 2022-12-19 10:15 | Orthopedic Progress Note ---
Date of Service December 19, 2022 Assessment & Plan (1) Neurogenic claudication due to lumbar spinal stenosis: Plan: At this time continue physical therapy monitor ALTON operatively discharge home in next few days. Admission and Anticipated Discharge Date Admission Date: December 18, 2022 Subjective Back pain controlled leg pain improved Physical Exam Physical Exam: Patient is in the chair at the bedside. Is constricted testing. Appears comfortable. Results & Data Vital Signs (Past 12 Hours) Vital Signs Temp Pulse Resp BP Pulse Ox O2 Del Method 12/19/22 07:34 77 15 95 Room Air 12/19/22 07:14 36.7 C 76 16 95/63 L 95 Room Air 12/19/22 03:19 36.6 C 74 16 113/66 98 Room Air 12/19/22 00:22 75 16 104/66 95 Room Air 12/18/22 23:26 83 100/64 12/18/22 23:01 37.1 C 93 H 16 96/62 L 95 Room Air Queries Orthopedic Spine Acute Posthemorrhagic Anemia: Yes
[2022-12-19] MEDS: traMADol HCL 50 MG TABLET PO PRN (14:19)
[2022-12-19] MEDS ORDERED: POTASSIUM CHLORIDE CRTAB 20 MEQ TABCR PO STA (15:45)
[2022-12-19 16:21] LABS: Magnesium 1.9 mg/dl (1.7-2.4)
[2022-12-19] MEDS: ACETAMINOPHEN 500 MG TAB PO PRN (20:51)
[2022-12-19] MEDS: ATORVASTATIN 40 MG TAB PO SCH (20:51)
[2022-12-19] MEDS: DOCUSATE SODIUM/SENNA 50/8.6MG TAB PO SCH (20:51)
--- NOTE | 2022-12-19 20:59 | Hospitalist Progress Note ---
Date of Service December 19, 2022 Assessment & Plan (1) Neurogenic claudication due to lumbar spinal stenosis: (2) COPD (chronic obstructive pulmonary disease): (3) Dyslipidemia: (4) Hypertension: (5) Depression with anxiety: (6) PAC (premature atrial contraction): (7) PVC (premature ventricular contraction): Plan Ms. Meehan is a 67 year old female that presented to the [facility] today for an elective L2-L3 decompression with T12-S1 fusion procedure under the care of Dr. Luo after failed conservative management. Additional past medical history includes COPD, HTN, HLD, depression and anxiety, and GERD. Neurogenic Claudication due to lumbar spinal stenosis: 12/18-- s/p L2-L3 decompression; T12-S1 fusion under the care of Dr. Luo. Management per primary service Hb 12--> 8 today. Will repeat CBC tomorrow COPD: Follows with pulmonary [facility]. Uses Trelegy Ellipta, daily Ventolin inhalers and Singulair; continue stable HTN: History of PAC/PVC: PAC/PVC from 2014; had holter monitor;no sustained VT Takes metoprolol and losartan; continue BP soft, hold parameters placed HLD: Takes atorvastatin; continue Depression and anxiety: Takes Wellbutrin; continue GERD: Takes Pantoprazole; continue Disposition: PCP: Dr. Long Code Status: Full Code VTE Prophylaxis: Per admitting team Admission and Anticipated Discharge Date Admission Date: December 18, 2022 Subjective No chest pain, shortness of breath Having post op surgical pain, moderate in intensity. Just received tramadol 260 cc from ALTON drain today Review of Systems Review of Systems: as above Physical Exam Physical Exam: Appears stated age, no acute distress, uncomfortable due to back pain Respiratory: breathing comfortably on room air, no wheezing/rhonchi Cardiovascular: regular rate and rhythm, no murmurs/rubs Gastrointestinal (Abdomen): soft, non tender Musculoskeletal: no edema, ALTON drain with blood Results & Data Results & Data Vital Signs (Past 12 Hours) Vital Signs Temp Pulse Resp BP BP Pulse Ox O2 Del Method 12/19/22 20:50 37.0 C 76 16 107/63 93 Room Air 12/19/22 20:05 36.9 C 78 18 104/71 94 Room Air 12/19/22 15:57 37.1 C 70 16 109/73 95 Room Air 12/19/22 11:08 36.7 C 82 16 94/59 L 96 Room Air
[2022-12-20] MEDS: oxyCODONE HCL IR 5 MG TAB (IMMEDIATE RELEASE) PO PRN ×3 (03:42→20:28)
[2022-12-20] MEDS: POLYETHYLENE (MIRALAX) 17 GM PACK PO SCH ×3 (06:19→18:58)
[2022-12-20] MEDS: ALBUTEROL 0.083% NEBU SOLN 3 ML VIAL INH SCH (07:13)
[2022-12-20] MEDS: BUDESONIDE 0.25 MG/2 ML VIAL (PULMICORT) INH SCH (07:13)
[2022-12-20] MEDS: traMADol HCL 50 MG TABLET PO PRN (07:55)
[2022-12-20] MEDS: ASPIRIN 81 MG ECTAB PO SCH (08:01)
[2022-12-20] MEDS: FLUTICASONE FUROATE 200MCG 14 PUFFS/INHALER INH SCH (08:02)
[2022-12-20] MEDS: CALCIUM 600MG + VIT D 400 IU TAB PO SCH (08:02)
[2022-12-20] MEDS: buPROPion XL 150 MG TABCR PO SCH (08:02)
[2022-12-20] MEDS: METOPROLOL TARTRATE 25 MG TAB PO SCH ×2 (08:03→20:38)
[2022-12-20] MEDS: LOSARTAN POTASSIUM 25 MG TAB PO SCH (08:03)
[2022-12-20] MEDS: MONTELUKAST SODIUM 10 MG TABLET PO SCH (08:04)
[2022-12-20] MEDS: UMECLIDINIUM/VILANTEROL 62.5/25MCG 7 PUFFS/INHALER INH SCH (08:08)
[2022-12-20] MEDS: dexAMETHasone 6 MG in SYRINGE 0 ML IV SCH (08:09)
[2022-12-20] MEDS: PANTOprazole 40 MG TAB PO SCH (09:28)
[2022-12-20 09:36] LABS: Hematocrit (blood only) 24.6 % (37.0-47.0); Hemoglobin 8.1 g/dl (12.0-16.0); Mean Corpuscular Hgb Conc 32.9 g/dL (32.0-36.0); Mean Corpuscular Volume 97.2 fL (80.0-100.0); Mean Platelet Volume 11.7 fL (9.4-12.4); Platelet Count 192 K/uL (130-400); RDW Coefficient of Variation 12.9 % (11.5-14.5); RDW Standard Deviation 45.8 fL (36.4-46.3); Red Blood Count 2.53 M/uL (4.20-5.40); White Blood Count 12.58 K/ul (4.8-10.8)
--- NOTE | 2022-12-20 10:24 | Orthopedic Progress Note ---
Date of Service December 20, 2022 Assessment & Plan (1) Neurogenic claudication due to lumbar spinal stenosis: Plan: This time continue physical therapy monitor ALTON output anticipate discharge home this weekend. Admission and Anticipated Discharge Date Admission Date: December 18, 2022 Subjective Back pain controlled leg symptoms improved Physical Exam Physical Exam: Patient is up and ambulating. She is constricted testing. Results & Data Vital Signs (Past 12 Hours) Vital Signs Temp Pulse Resp BP Pulse Ox O2 Del Method 12/20/22 07:09 36.5 C 82 16 116/73 94 Room Air 12/20/22 07:15 83 16 93 Room Air Queries Orthopedic Spine Acute Posthemorrhagic Anemia: Yes
--- NOTE | 2022-12-20 13:25 | Hospitalist Progress Note ---
Date of Service December 20, 2022 Assessment & Plan (1) Neurogenic claudication due to lumbar spinal stenosis: (2) COPD (chronic obstructive pulmonary disease): (3) Dyslipidemia: (4) Hypertension: (5) Depression with anxiety: (6) PAC (premature atrial contraction): (7) PVC (premature ventricular contraction): Plan Ms. Meehan is a 67 year old female that presented to the [facility] today for an elective L2-L3 decompression with T12-S1 fusion procedure under the care of Dr. Luo after failed conservative management. Additional past medical history includes COPD, HTN, HLD, depression and anxiety, and GERD. Neurogenic Claudication due to lumbar spinal stenosis: POD#2 s/p L2-L3 decompression; T12-S1 fusion under the care of Dr. Luo Has not yet passed gas post-operatively but is having Miralax TID and ambulating No N/V or abdominal pain. Consider KUB if symptoms progress to eval for ileus/obstruction Post op blood loss anemia: Hgb 8.1 today (from 8.6 yesterday) with pre-op hgb of 12.6 VSS, asymptomatic. Continue to trend CBC daily COPD: Follows with pulmonary [facility]. Uses Trelegy Ellipta, daily Ventolin inhalers and Singulair; continue stable HTN: History of PAC/PVC: PAC/PVC from 2014; had Holter monitor;no sustained VT Continue metoprolol and losartan with hold parameters HLD: Takes atorvastatin; continue Depression and anxiety: Takes Wellbutrin; continue GERD: Takes Pantoprazole; continue Disposition: PCP: Dr. Long Code Status: Full Code VTE Prophylaxis: Per admitting team Patient seen in collaboration with Dr. Maciel. Please see addendum. I spent a total of 40 minutes coordinating, documenting, and providing care for this patient excluding time spent in the performance of separately billed services. Admission and Anticipated Discharge Date Admission Date: December 18, 2022 Supervising Physician Co-Signing Physician Notes I have seen and examined the patient and have discussed the case with the provider above. I agree with the assessment and plan as stated. 67 yo F post op with ongoing pain and abdominal bloating. Advised to cut back on oxycodonee if pain was tolerable. Advised against use of NSAIDs. My physial exam was consistent with that above. ALTON drain in place. Labs/Meds reviewed. Agree withplan above. DO Raheem Subjective Patient seen and examined in 375 bed 2. Feeling more comfortable today from surgical standpoint with minimal surgical site discomfort. Has been ambulating with therapy. Is having gassy discomfort in abdomen and has yet to pass gas or have bowel movement postoperatively. Denies any nausea, vomiting or cathryn abdominal pain. Has been doing bowel regimen and is about to try prune juice concoction. Denies any fever, chills, chest pain, shortness of breath, dysuria. Review of Systems Review of Systems: At least ten systems reviewed and negative except as noted in the HPI. Physical Exam Physical Exam: Gen: WD/WN, NAD, sitting up in bed, A&Ox3 HEENT: Normocephalic, atraumatic, conjunctivae moist, sclerae anicteric, mucous membranes moist Lung: Clear to Auscultation bilaterally, no wheezes/rales/rhonchi Heart: Regular rate, regular rhythm, no murmurs, rubs, or gallops Abdomen: Soft with mild distension, non-tender +BS x 4 Extremities: no edema Skin: Warm, no rash Results & Data Results & Data Vital Signs (Past 12 Hours) Vital Signs Temp Pulse Resp BP Pulse Ox O2 Del Method 12/20/22 07:09 36.5 C 82 16 116/73 94 Room Air 12/20/22 07:15 83 16 93 Room Air Laboratory Results Short CBC 12/20/22 Range/Units 06:53 WBC 12.58 H (4.8-10.8) K/ul Hgb 8.1 L (12.0-16.0) g/dl Hct 24.6 L (37.0-47.0) % Plt Count 192 (130-400) K/uL Diagnostic Findings Lumbar Spine X-Ray 12/18/22 10:55 FL lumbar spine 2-3V CLINICAL HISTORY: L2-L3 DECOMPRESSION T12-S1 FUSION L3-S1 HW REMOVAL COMPARISON STUDY: 08/25/2017 FLUOROSCOPY TIME: 47 seconds FLUOROSCOPY IMAGES: 4 EXPOSURE DOSE: 14.09 mGy FINDINGS: Postoperative biological fusion hardware noted at T12-S1. Interval removal of the pedicle screws at L4. L3-L4 discectomy. Hardware appears intact. No unexpected opaque foreign bodies identified. Unchanged anterolisthesis L4 on L5. Note that the images were submitted following completion of the surgery. IMPRESSION: Fluoroscopic assistance as above. ACT 112: Negative or not required by law. Electronically signed by: Floyd Jennings M.D. 12/18/2022 2:32 PM
[2022-12-20] MEDS: ACETAMINOPHEN 500 MG TAB PO PRN (17:00)
[2022-12-20] MEDS: ATORVASTATIN 40 MG TAB PO SCH (20:38)
[2022-12-20] MEDS: DOCUSATE SODIUM/SENNA 50/8.6MG TAB PO SCH (20:38)
[2022-12-21] MEDS: POLYETHYLENE (MIRALAX) 17 GM PACK PO SCH ×4 (01:02→17:54)
[2022-12-21] MEDS: oxyCODONE HCL IR 5 MG TAB (IMMEDIATE RELEASE) PO PRN ×3 (05:31→20:36)
[2022-12-21] MEDS: ALBUTEROL 0.083% NEBU SOLN 3 ML VIAL INH SCH (06:49)
[2022-12-21] MEDS: BUDESONIDE 0.25 MG/2 ML VIAL (PULMICORT) INH SCH (06:49)
[2022-12-21] MEDS: ACETAMINOPHEN 500 MG TAB PO PRN (08:15)
--- NOTE | 2022-12-21 08:46 | Orthopedic Progress Note ---
Date of Service December 21, 2022 Assessment & Plan (1) Neurogenic claudication due to lumbar spinal stenosis: Plan: Lisa is postoperative day 3 status post hard removal L3-S1, decompression instrumented fusion T11-S1. She is doing well. We will focus on aggressive bowel regimen today. Continue with pain control. Maintain ALTON drain. Continue with physical therapy and ambulation in the hallways. Anticipate discharge home possibly tomorrow. Admission and Anticipated Discharge Date Admission Date: December 18, 2022 Subjective Lisa is postoperative day 3 status post hard removal L3-S1, decompression instrumented fusion T11-S1. She is making great progress. Leg symptoms greatly improved. She has complaints of back pain and lower rib pain. Yesterday in physical therapy she is ambling 500 feet plus the hallways several times with the assistance of a walker. ALTON drain output last shift is 100 cc. She has passing flatus but no bowel movement yet. Review of Systems Review of Systems: All systems reviewed & are unremarkable except as noted in HPI & below Physical Exam Physical Exam: Sitting up in bed in no acute distress Alert and oriented times Dressing is clean dry and intact with functioning ALTON drain Calf soft nontender bilateral Strength intact bilateral lower extremities Results & Data Vital Signs (Past 12 Hours) Vital Signs Temp Pulse Resp BP Pulse Ox O2 Del Method 12/21/22 07:19 36.5 C 70 14 110/70 97 Room Air 12/21/22 06:51 75 15 94 Room Air
[2022-12-21] MEDS: CALCIUM 600MG + VIT D 400 IU TAB PO SCH (09:15)
[2022-12-21] MEDS: buPROPion XL 150 MG TABCR PO SCH (09:15)
[2022-12-21] MEDS: dexAMETHasone 6 MG in SYRINGE 0 ML IV SCH (09:15)
[2022-12-21] MEDS: ASPIRIN 81 MG ECTAB PO SCH (09:15)
[2022-12-21] MEDS: PANTOprazole 40 MG TAB PO SCH (09:16)
[2022-12-21] MEDS: FLUTICASONE FUROATE 200MCG 14 PUFFS/INHALER INH SCH (09:16)
[2022-12-21] MEDS: LOSARTAN POTASSIUM 25 MG TAB PO SCH (09:16)
[2022-12-21] MEDS: UMECLIDINIUM/VILANTEROL 62.5/25MCG 7 PUFFS/INHALER INH SCH (09:16)
[2022-12-21] MEDS: METOPROLOL TARTRATE 25 MG TAB PO SCH ×2 (09:16→20:44)
[2022-12-21] MEDS: MONTELUKAST SODIUM 10 MG TABLET PO SCH (09:16)
[2022-12-21] MEDS: traMADol HCL 50 MG TABLET PO PRN (11:42)
--- NOTE | 2022-12-21 13:28 | Hospitalist Progress Note ---
Date of Service December 21, 2022 Assessment & Plan (1) Neurogenic claudication due to lumbar spinal stenosis: (2) COPD (chronic obstructive pulmonary disease): (3) Dyslipidemia: (4) Hypertension: (5) Depression with anxiety: (6) PAC (premature atrial contraction): (7) PVC (premature ventricular contraction): Plan Ms. Meehan is a 67 year old female that presented to the [facility] today for an elective L2-L3 decompression with T12-S1 fusion procedure under the care of Dr. Luo after failed conservative management. Additional past medical history includes COPD, HTN, HLD, depression and anxiety, and GERD. Neurogenic Claudication due to lumbar spinal stenosis: POD#3 s/p L2-L3 decompression; T12-S1 fusion under the care of Dr. Luo Has not yet passed gas post-operatively but is having Miralax TID and ambulating Post op blood loss anemia: Hb remains stable No symptoms of anemia COPD: Follows with pulmonary [facility] [place]. Uses Trelegy Ellipta, daily Ventolin inhalers and Singulair; continue stable HTN: History of PAC/PVC: PAC/PVC from 2014; had Holter monitor;no sustained VT Continue metoprolol and losartan with hold parameters HLD: Takes atorvastatin; continue Depression and anxiety: Takes Wellbutrin; continue GERD: Takes Pantoprazole; continue Disposition: PCP: Dr. Long Code Status: Full Code VTE Prophylaxis: Per admitting team Admission and Anticipated Discharge Date Admission Date: December 18, 2022 Subjective Passing a small amount of gas. No BM yet She is ambulating around in her room Having some back pain Review of Systems Review of Systems: as above Physical Exam Physical Exam: Appears well, no acute distress Respiratory: breathing comfortably, no wheezing/rhonchi/rales Cardiovascular: regular rate and rhythm, no murmurs/rubs Gastrointestinal (Abdomen): hypoactive, non tender Neurologic: awake, alert, ambulating in room independently Results & Data Results & Data Vital Signs (Past 12 Hours) Vital Signs Temp Pulse Resp BP Pulse Ox O2 Del Method 12/21/22 07:19 36.5 C 70 14 110/70 97 Room Air 12/21/22 06:51 75 15 94 Room Air
[2022-12-21] MEDS: ATORVASTATIN 40 MG TAB PO SCH (20:44)
[2022-12-21] MEDS: DOCUSATE SODIUM/SENNA 50/8.6MG TAB PO SCH (20:44)
[2022-12-22] MEDS: POLYETHYLENE (MIRALAX) 17 GM PACK PO SCH ×3 (00:08→12:00)
[2022-12-22] MEDS: oxyCODONE HCL IR 5 MG TAB (IMMEDIATE RELEASE) PO PRN ×2 (06:12→12:34)
[2022-12-22] MEDS: ALBUTEROL 0.083% NEBU SOLN 3 ML VIAL INH SCH (06:45)
[2022-12-22] MEDS: BUDESONIDE 0.25 MG/2 ML VIAL (PULMICORT) INH SCH (06:46)
[2022-12-22] MEDS: FLUTICASONE FUROATE 200MCG 14 PUFFS/INHALER INH SCH (07:48)
[2022-12-22] MEDS: UMECLIDINIUM/VILANTEROL 62.5/25MCG 7 PUFFS/INHALER INH SCH (07:48)
[2022-12-22] MEDS: PANTOprazole 40 MG TAB PO SCH (07:49)
[2022-12-22] MEDS: ASPIRIN 81 MG ECTAB PO SCH (07:49)
[2022-12-22] MEDS: MONTELUKAST SODIUM 10 MG TABLET PO SCH (07:49)
[2022-12-22] MEDS: buPROPion XL 150 MG TABCR PO SCH (07:49)
[2022-12-22] MEDS: LOSARTAN POTASSIUM 25 MG TAB PO SCH (07:49)
[2022-12-22] MEDS: METOPROLOL TARTRATE 25 MG TAB PO SCH (07:49)
[2022-12-22] MEDS: CALCIUM 600MG + VIT D 400 IU TAB PO SCH (07:49)
--- NOTE | 2022-12-22 08:47 | Discharge Summary ---
Date of Service December 22, 2022 Admission HPI Per Admitting Provider This is a 67-year-old female who presents with chronic persistent back and leg pain after failing course of nonoperative care she is here for surgical invention. Admission Exam (Per Admitting) Constitutional WD/WN, vitals as above average body habitus Eyes normal visual mary by confrontation ENMT external ear and nose normal, oropharynx normal Neck normal visual inspection Respiratory normal respiratory effort Cardiovascular Extremities: normal capillary refill Gastrointestinal (Abdomen) Inspection/Auscultation: abdomen normal to inspection Musculoskeletal Spine: + pain with thoraco-lumbar ROM Extremities: extremities normal to inspection and strength 5/5 throughout Skin no rashes, warm and dry Neurologic normal touch/pain/proprioception and moves all extremities Psychiatric A+Ox3, euthymic affect Eye Contact: good eye contact Discharge Data Consultations 12/18/22 15:26 Consult Hospitalist Routine Procedures Performed Operation Date: 12/18/22 10:55 Actual Procedures p L2-L3 Decompression, T12-S1 Fusion, Spinal Cord Monitoring - Galen Luo DO s L3-S1 Hardware Removal, - Galen Luo DO Hospital Course (1) Neurogenic claudication due to lumbar spinal stenosis: Lisa is being discharged home on postoperative day 4 status post hard removal L3-S1, decompression instrumented fusion T11-S1. She had an uneventful postoperative hospital course. Lab values have been stable. She has been ambulating the hallways in addition to physical therapy. She had a bowel movement. ALTON drain output has been diminishing appropriately. Pain is controlled. She had a bowel movement. Discharge Instructions ACTIVITY RECOMMENDATIONS: SELF CARE INSTRUCTIONS AFTER THORACIC/LUMBAR FUSIONS 1. You may walk to your tolerance. It is good exercise for your legs and back. Expect some back and intermittent leg aches and pains. 2. You may perform "counter-top" level activities (make a sandwich, renetta with a project, etc.). 3. No bending or lifting of more than 10 pounds or back twisting of any nature (roll like a log when turning in bed). 4. You may ride in a car for 20-30 minutes at a time. No driving until after your first visit with your doctor. 5. Frequent changes of position and restricting sitting to 30 minutes at a time will help limit the amount of back spasms and stiffness you may experience. 6. You may discontinue the use of ambulatory aids (cane, crutches, etc.) once your strength and confidence allow. 7. You may rodding machine tender the shower and let water strike your incision when you arrive home at least once daily. Do not take a tub bath, sit in a hot tub or go into a swimming pool until after your first recheck in the office. SPECIAL CARE INSTRUCTIONS: VERY IMPORTANT TO READ AND REVIEW A. Your surgical incision has been closed with a cosmetic suture under the skin that will dissolve in about 6 weeks. In 14 days, you can use a pair of clean scissors and cut the suture that is left outside of the skin at the ends of your incision. 1. The small skin tapes can be removed 7 days after surgery if they have not fallen off by that point. 2. You may keep the wound open to air as much as possible to promote healing after post-op day number 5 unless told otherwise by your doctor. 3. If you think the wound looks like it is becoming infected (redness or worsening drainage) and/or you are experiencing fever, chill or worsening back pain and muscle spasms, contact the office so that we may evaluate you as soon as possible. B. Complications are uncommon, but please contact us if you have any signs or symptoms of: 1. wound infection (fever higher than 102.5 degrees F, redness, separation of wound, drainage, or increasing pain from the incision) 2. blood clots in legs (pain, swelling, redness and warmth in legs) 3. urinary tract infection (fever higher than 102.5 degrees F, burning upon urination or increased frequency of urination) 4. nerve problems (inability to walk on your toes or heels, numbness, loss of bowel or bladder control) 5. any other symptoms that concern you C. Please call the office at if you have any concerns or questions about your operation or recovery. D. No smoking! Smoking drastically decreases the chance of a solid fusion. E. Do not take any anti-inflammatory medications (Indocin, Advil, Motrin, Aspirin, Naprosyn, etc.) as these may inhibit the chance of a solid fusion. Tylenol is okay to take for pain. MANAGING PAIN AFTER SPINAL SURGERY 1. Narcotic medication is intended for short-term use and will be provided for surgical pain. Surgical pain usually lasts for a period of 4-6 weeks. Narcotic medication includes Percocet, Vicodin, Darvocet, Tylenol #3 or Lortab. 2. Longer-term pain is more appropriately treated with non-narcotic medication such as Tylenol ES. 3. Muscle spasm is not appropriately treated with narcotics. Muscle relaxers such as Soma, Flexeril or Skelaxin can be used along with Tylenol ES. 4. Remember that we all live with some "aches and pains". This is not unusual or uncommon after an injury or as we get older. a. Back pain is expected and may include muscle spasms for 4 to 6 weeks after surgery. The pain should gradually improve. If the pain worsens for no apparent reason, please contact the office. b. Intermittent leg pain may also be experienced and should not be concerned about unless it worsens for no apparent reason. If so, please contact the office. 5. We will provide appropriate medication within the normal guidelines of their prescribed use. We will also be very cautious and aware of potential abuse and extended duration of patients' medication needs. a. Pain medications are for your comfort and to assist with sleep and rest so that the tissue can heal. They are not provided in order to return to normal activity and should not be used through the day. To do so or worsening pain at night can result from ongoing tissue damage and development of tolerance to the prescribed medicine. 6. Please allow 2-3 days to process refills. Prescriptions will not be mailed but must be picked up at the office. FOLLOW UP VISIT: Keep your scheduled follow-up appointment. Any questions, please call the office at .
== END 2022-12-22 13:45 | disposition home or self-care (01) | DRG 454 ==
LOC: ASU 09:19 → 3N 13:35